=== PATIENT | male | born 1995 | race Caucasian/White ===

== ENCOUNTER 2017-04-12 17:57 | Inpatient (IN) | payer BC, OTHER ==
[~2017-04-12] VITALS: Ht 152.4 cm; Wt 56.7 kg
[~2017-04-12 17:57] MED LIST: ALPRAZOLAM0.5 MG PO; KLONOPIN1 MG ORAL; ZOLOFT100 MG ORAL; ZOLOFT50 MG ORAL
--- NOTE | 2017-04-12 18:03 | Emergency Room Report ---
History of Present Illness General Source: Patient, EMS Present Illness HPI The patient is a 21-year-old male brought in by EMS after reported overdose on medications. Patient reportedly ingested approximately 10 pills of unknown type. Patient was noted to have multiple different meds medications. Patient was on tramadol for chronic back pain reportedly. Patient also is taking ADHD medications. Reported ingestion approximately one to 2 hours prior to arrival. Allergies: Coded Allergies: No Known Allergies (Unverified , 04/11/16) Patient History Past Medical History: see triage record Reviewed Nursing Documentation: PMH: Agreed, PSxH: Agreed Nursing Documentation-PMH Hx Hypertension: Yes Review of Systems All Other Systems: negative except mentioned in HPI Physical Exam Sp02 EP Interpretation: reviewed, normal General Appearance: alert/responsive, no apparent distress, GCS 15, non-toxic Head: atraumatic Eyes: PERRL, lids + conjunctiva normal ENT: hearing intact, no angioedema Neck: supple/symm/no masses, no meningismus Respiratory: effort normal, no wheezing, chest symmetrical Cardiovascular: regular rate, rhythm, no edema Cardiovascular #2: 2+ carotid (R), 2+ carotid (L), 2+ dorsalis pedis (R), 2+ dorsalis pedis (L) Gastrointestinal: non-tender, no mass, non-distended, no rebound/guarding, normal bowel sounds Musculoskeletal: gait & station normal, strength & tone normal, normal ROM, non -tender Neurologic: oriented x3, sensory intact, normal speech Psychiatric: normal inspection, judgment & insight normal Skin: no rash, well hydrated Lymphatic: normal inspection Medical Decision Making Diagnostic Impression: Primary Impression: Medication overdose ER Course Patient presented for overdose. Differential diagnoses included wasn't limited to suicide attempt versus accidental ingestion, Tylenol overdose, among others.The patient was discussed with poison control. They recommended 6 hours of observation. Charcoal was not recommended.The patient was noted to have some improvement in his mental status over time.Patient was noted to have some bradycardia on cardiac monitoring. A repeat EKG showed the sinus bradycardia with a rate of 42. This is not consistent with medications the patient was noted of overdosed on. The patient was given IV magnesium for prolonged QT interval. Labs Test 04/12/17 18:00 04/12/17 18:05 White Blood Count 12.2 K/UL (4.8-10.8) Red Blood Count 5.10 M/UL (4.70-6.10) Hemoglobin 15.7 G/DL (14.2-18.0) Hematocrit 46.5 % (42.0-52.0) Mean Corpuscular Volume 91 FL (80-99) Mean Corpuscular Hemoglobin 30.7 PG (27.0-31.0) Mean Corpuscular Hemoglobin Concent 33.7 G/DL (32.0-36.0) Red Cell Distribution Width 12.4 % (11.6-14.8) Platelet Count 276 K/UL (150-450) Mean Platelet Volume 6.7 FL (6.5-10.1) Neutrophils (%) (Auto) 77.1 % (45.0-75.0) Lymphocytes (%) (Auto) 13.1 % (20.0-45.0) Monocytes (%) (Auto) 7.6 % (1.0-10.0) Eosinophils (%) (Auto) 1.7 % (0.0-3.0) Basophils (%) (Auto) 0.5 % (0.0-2.0) Sodium Level 141 mEQ/L (135-145) Potassium Level 4.0 mEQ/L (3.4-4.9) Chloride Level 98 mEQ/L (98-107) Carbon Dioxide Level 30 mEQ/L (20-30) Anion Gap 13 (5-15) Blood Urea Nitrogen 12 mg/dL (7-23) Creatinine 1.0 mg/dL (0.7-1.2) Estimat Glomerular Filtration Rate > 60 mL/min (>60) Glucose Level 114 mg/dL (74-106) Calcium Level 9.8 mg/dL (8.6-10.2) Total Bilirubin 0.3 mg/dL (0.0-1.2) Aspartate Amino Transf (AST/SGOT) 27 U/L (5-40) Alanine Aminotransferase (ALT/SGPT) 17 U/L (3-41) Alkaline Phosphatase 66 U/L (40-129) Total Protein 6.8 g/dL (6.6-8.7) Albumin 4.6 g/dL (3.5-5.2) Globulin 2.2 g/dL Albumin/Globulin Ratio 2.0 (1.0-2.7) Salicylates Level < 1 mg/dL (10-30) Acetaminophen Level < 10 ug/mL (10-30) Serum Alcohol < 10 mg/dL Urine Opiates Screen Negative (NEGATIVE) Urine Barbiturates Screen Negative (NEGATIVE) Phencyclidine (PCP) Screen Negative (NEGATIVE) Urine Amphetamines Screen Negative (NEGATIVE) Urine Benzodiazepines Screen Positive (NEGATIVE) Urine Cocaine Screen Negative (NEGATIVE) Urine Marijuana (THC) Screen Negative (NEGATIVE) EKG Diagnostic Results Rate: normal - 70 Rhythm: NSR ST Segments: other - qtc 453 Status: unchanged Disposition: ADMITTED INPATIENT Condition: Esdras Shukla April 12, 2017 18:03
[2017-04-12 18:30] VITALS: BP 138/88
[2017-04-12 18:48] LABS: BASOPHILS % (AUTO) 0.5 % (0.0-2.0); EOSINOPHILS % (AUTO) 1.7 % (0.0-3.0); LYMPHOCYTES % (AUTO) 13.1 % (20.0-45.0); MEAN CORPUSCULAR HEMOGLOBIN 30.7 PG (27.0-31.0); MEAN CORPUSCULAR HGB CONC 33.7 G/DL (32.0-36.0); MEAN CORPUSCULAR VOLUME 91 FL (80-99); MEAN PLATELET VOLUME 6.7 FL (6.5-10.1); MONOCYTES % (AUTO) 7.6 % (1.0-10.0); NEUTROPHILS % (AUTO) 77.1 % (45.0-75.0); PLATELET COUNT 276 K/UL (150-450); RED CELL DISTRIBUTION WIDTH 12.4 % (11.6-14.8); WHITE BLOOD COUNT 12.2 K/UL (4.8-10.8)
[2017-04-12 19:07] LABS: ACETAMINOPHEN < 10 ug/mL (10-30); ALANINE AMINOTRANSFERASE 17 U/L (3-41); ALCOHOL < 10 mg/dL; ANION GAP 13 (5-15); ASPARTATE AMINO TRANSFERASE 27 U/L (5-40); CALCIUM 9.8 mg/dL (8.6-10.2); CARBON DIOXIDE 30 mEQ/L (20-30); CHLORIDE 98 mEQ/L (98-107); GLOMERULAR FILTRATION RATE > 60 mL/min (>60); HEMOLYSIS 5; SODIUM 141 mEQ/L (135-145); TOTAL PROTEIN 6.8 g/dL (6.6-8.7)
[2017-04-12 20:52] VITALS: BP 143/89
[2017-04-13] MEDS ORDERED: Haloperidol 5mg/ml Inj IVPB PRN
[2017-04-13] MEDS ORDERED: UNOBMED (00:57)
[2017-04-13 01:00] VITALS: BP 126/79
[2017-04-13 01:36] VITALS: BP 118/77
[2017-04-13] MEDS ORDERED: STRATTERA80 MG PO (01:51)
[2017-04-13] MEDS ORDERED: TEMAZEPAM30 MG (01:53)
[2017-04-13] MEDS ORDERED: ALPRAZOLAM XR2 MG (01:53)
[2017-04-13] MEDS ORDERED: MIRTAZAPINE15 M3 (01:53)
[2017-04-13] MEDS ORDERED: VENLAFAXINE HC150 MG (01:53)
[2017-04-13 03:25] VITALS: BP 129/79
[2017-04-13] MEDS ORDERED: Haloperidol 5mg/ml Inj IM PRN ×3 (08:00→18:00)
[2017-04-13] MEDS ORDERED: Thiamine 100mg in D5W 55ml IVPB SCH (08:00)
[2017-04-13 08:19] LABS: BASOPHILS % (AUTO) 0.5 % (0.0-2.0); EOSINOPHILS % (AUTO) 2.5 % (0.0-3.0); LYMPHOCYTES % (AUTO) 13.6 % (20.0-45.0); MEAN CORPUSCULAR HEMOGLOBIN 28.8 PG (27.0-31.0); MEAN CORPUSCULAR HGB CONC 32.1 G/DL (32.0-36.0); MEAN CORPUSCULAR VOLUME 90 FL (80-99); MONOCYTES % (AUTO) 7.6 % (1.0-10.0); NEUTROPHILS % (AUTO) 75.9 % (45.0-75.0); PLATELET COUNT 277 K/UL (150-450); RED BLOOD COUNT 5.54 M/UL (4.70-6.10); RED CELL DISTRIBUTION WIDTH 12.2 % (11.6-14.8); WHITE BLOOD COUNT 10.4 K/UL (4.8-10.8)
[2017-04-13 08:35] LABS: ALANINE AMINOTRANSFERASE 15 U/L (3-41); ANION GAP 11 (5-15); ASPARTATE AMINO TRANSFERASE 25 U/L (5-40); CALCIUM 9.3 mg/dL (8.6-10.2); CARBON DIOXIDE 30 mEQ/L (20-30); CHLORIDE 102 mEQ/L (98-107); CREATININE 0.9 mg/dL (0.7-1.2); GLOMERULAR FILTRATION RATE > 60 mL/min (>60); HEMOLYSIS 12; POTASSIUM 3.9 mEQ/L (3.4-4.9); SODIUM 143 mEQ/L (135-145); TOTAL PROTEIN 6.3 g/dL (6.6-8.7)
[2017-04-13] MEDS ORDERED: Folic Acid 1 MG, Magnesium Sulfate 2,000 MG, Multivitamin - 12 Injection 10 ML in NS w/... IV SCH (09:00)
[2017-04-13] MEDS ORDERED: Heparin 5000 units/ml inj SUBQ SCH (09:00)
--- NOTE | 2017-04-13 11:46 | History and Physical ---
History of Present Illness General Date patient seen: April 13, 2017 Reason for Hospitalization: Altered Mental Status Present Illness HPI 21-year-old male with hx of ETOH abuse brought in by EMS after reported overdose on medications. Patient reportedly ingested approximately 10 pills of unknown type. Patient was noted to have multiple different medications. Patient was on tramadol for chronic back pain reportedly. Patient also is taking ADHD medications. Reported ingestion approximately one to 2 hours prior to arrival. He was evaluated in ER and admitted to telemetry for further evaluation. Allergies: Coded Allergies: No Known Allergies (Unverified , 04/11/16) Medication History Scheduled Alprazolam* (Xanax*), 0.5 MG PO QID Atomoxetine Hcl (Strattera), 40 MG PO DAILY, (Reported) Sertraline Hcl* (Zoloft*), 50 MG ORAL DAILY Sertraline Hcl* (Zoloft*), 100 MG ORAL DAILY Scheduled PRN Clonazepam* (Klonopin*), 1 MG ORAL Q6H PRN for tid Miscellaneous Medications Alprazolam (Alprazolam Xr), (Reported) Mirtazapine* (Mirtazapine*), (Reported) Temazepam* (Temazepam*), (Reported) Unable to Obtain Medications (Unable To Obtain Meds), (Reported) Venlafaxine Hcl* (Venlafaxine Hcl Er*), (Reported) Patient History Healthcare decision maker Resuscitation status Full Code Advanced Directive on File Review of Systems All Other Systems: negative except mentioned in HPI Physical Exam General Appearance: WD/WN Lines, tubes and drains: peripheral HEENT: normocephalic Neck: non-tender, normal alignment Respiratory/Chest: chest wall non-tender, lungs clear Cardiovascular/Chest: normal peripheral pulses, normal rate Abdomen: normal bowel sounds, non tender Extremities: normal range of motion Skin Exam: normal pigmentation Last 24 Hour Vital Signs Date Time Temp Pulse Resp B/P Pulse Ox O2 Delivery O2 Flow Rate FiO2 04/13/17 04:00 53 04/13/17 03:25 96.9 51 18 129/79 99 Room Air 04/13/17 01:36 96.9 49 20 118/77 99 Room Air 04/13/17 01:00 98.1 53 15 126/79 98 Room Air 04/13/17 01:00 98.1 53 15 126/79 98 Room Air 04/12/17 20:52 98.1 50 12 143/89 100 Room Air 04/12/17 18:30 58 16 138/88 99 Room Air 04/12/17 17:57 98.1 62 16 136/97 97 Room Air Intake and Output 04/12/17 04/13/17 19:00 07:00 Intake Total 0 ml Output Total 1200 ml 400 ml Balance -1200 ml -400 ml Intake Oral 0 ml Output Urine Total 1200 ml 400 ml Laboratory Tests Test 04/12/17 18:00 04/12/17 18:05 04/13/17 07:25 White Blood Count 12.2 K/UL (4.8-10.8) H 10.4 K/UL (4.8-10.8) Red Blood Count 5.10 M/UL (4.70-6.10) 5.54 M/UL (4.70-6.10) Hemoglobin 15.7 G/DL (14.2-18.0) 15.9 G/DL (14.2-18.0) Hematocrit 46.5 % (42.0-52.0) 49.7 % (42.0-52.0) Mean Corpuscular Volume 91 FL (80-99) 90 FL (80-99) Mean Corpuscular Hemoglobin 30.7 PG (27.0-31.0) 28.8 PG (27.0-31.0) Mean Corpuscular Hemoglobin Concent 33.7 G/DL (32.0-36.0) 32.1 G/DL (32.0-36.0) Red Cell Distribution Width 12.4 % (11.6-14.8) 12.2 % (11.6-14.8) Platelet Count 276 K/UL (150-450) 277 K/UL (150-450) Mean Platelet Volume 6.7 FL (6.5-10.1) 7.0 FL (6.5-10.1) Neutrophils (%) (Auto) 77.1 % (45.0-75.0) H 75.9 % (45.0-75.0) H Lymphocytes (%) (Auto) 13.1 % (20.0-45.0) L 13.6 % (20.0-45.0) L Monocytes (%) (Auto) 7.6 % (1.0-10.0) 7.6 % (1.0-10.0) Eosinophils (%) (Auto) 1.7 % (0.0-3.0) 2.5 % (0.0-3.0) Basophils (%) (Auto) 0.5 % (0.0-2.0) 0.5 % (0.0-2.0) Sodium Level 141 mEQ/L (135-145) 143 mEQ/L (135-145) Potassium Level 4.0 mEQ/L (3.4-4.9) 3.9 mEQ/L (3.4-4.9) Chloride Level 98 mEQ/L (98-107) 102 mEQ/L (98-107) Carbon Dioxide Level 30 mEQ/L (20-30) 30 mEQ/L (20-30) Anion Gap 13 (5-15) 11 (5-15) Blood Urea Nitrogen 12 mg/dL (7-23) 11 mg/dL (7-23) Creatinine 1.0 mg/dL (0.7-1.2) 0.9 mg/dL (0.7-1.2) Estimat Glomerular Filtration Rate > 60 mL/min (>60) > 60 mL/min (>60) Glucose Level 114 mg/dL (74-106) H 120 mg/dL (74-106) H Calcium Level 9.8 mg/dL (8.6-10.2) 9.3 mg/dL (8.6-10.2) Total Bilirubin 0.3 mg/dL (0.0-1.2) 0.5 mg/dL (0.0-1.2) Aspartate Amino Transf (AST/SGOT) 27 U/L (5-40) 25 U/L (5-40) Alanine Aminotransferase (ALT/SGPT) 17 U/L (3-41) 15 U/L (3-41) Alkaline Phosphatase 66 U/L (40-129) 69 U/L (40-129) Total Protein 6.8 g/dL (6.6-8.7) 6.3 g/dL (6.6-8.7) L Albumin 4.6 g/dL (3.5-5.2) 4.2 g/dL (3.5-5.2) Globulin 2.2 g/dL 2.1 g/dL Albumin/Globulin Ratio 2.0 (1.0-2.7) 2.0 (1.0-2.7) Salicylates Level < 1 mg/dL (10-30) L Acetaminophen Level < 10 ug/mL (10-30) L Serum Alcohol < 10 mg/dL Urine Opiates Screen Negative (NEGATIVE) Urine Barbiturates Screen Negative (NEGATIVE) Phencyclidine (PCP) Screen Negative (NEGATIVE) Urine Amphetamines Screen Negative (NEGATIVE) Urine Benzodiazepines Screen Positive (NEGATIVE) H Urine Cocaine Screen Negative (NEGATIVE) Urine Marijuana (THC) Screen Negative (NEGATIVE) Height (Feet): 5 Height (Inches): 0.00 Weight (Pounds): 125 Medications Current Medications Medications (Trade) Dose Ordered Sig/Chet Route PRN Reason Start Time Stop Time Status Last Admin Dose Admin Acetaminophen (Tylenol) 650 mg Q4H PRN ORAL fever 04/13/17 00:00 05/13/17 00:00 Al Hydroxide/Mg Hydroxide (Mylanta II) 30 ml Q6H PRN ORAL dyspepsia 04/13/17 00:00 05/13/17 00:00 Chlordiazepoxide 25 mg 25 mg Q6H PRN ORAL Agitation 04/13/17 00:00 04/20/17 00:00 04/13/17 09:10 Dextrose STAT PRN IV Hypoglycemia 04/13/17 00:00 05/13/17 00:00 Folic Acid/ Magnesium Sulfate/ Multivitamins/ Sodium Chloride (Folvite/ Magnesium Sulfate/ M.v.i.-12/NS w/ KCl 20mEq) 1,014.2 ml @ 124.876 mls/hr Q24H IV 04/13/17 09:00 05/13/17 08:59 04/13/17 09:56 Haloperidol Lactate (Haldol) 5 mg Q1H PRN IM Agitation 04/13/17 08:00 05/13/17 07:59 04/13/17 11:00 Heparin Sodium (Porcine) (Heparin 5000 units/ml) 5,000 units EVERY 12 HOURS SUBQ 04/13/17 09:00 05/13/17 08:59 04/13/17 09:11 Lorazepam (Ativan 2mg/ml 1ml) 2 mg Q1H PRN IV seizures 04/13/17 00:00 04/20/17 00:00 Morphine Sulfate (Morphine Sulfate) 1 mg Q4H PRN IVP For Pain 04/13/17 00:00 04/20/17 00:00 04/13/17 06:46 Ondansetron HCl (Zofran) 4 mg Q6H PRN IVP Nausea & Vomiting 04/13/17 00:00 05/13/17 00:00 Polyethylene Glycol (Miralax) 17 gm HSPRN PRN ORAL Constipation 04/13/17 00:00 05/13/17 00:00 Thiamine HCl/ Dextrose (Vitamin B1/D5W) 56 ml @ 112 mls/hr Q24H IVPB 04/13/17 08:00 05/13/17 07:59 04/13/17 09:10 Zolpidem Tartrate (Ambien) 5 mg HSPRN PRN ORAL Insomnia 04/13/17 00:00 05/13/17 00:00 Assessment/Plan Problem List: (1) Acute encephalopathy ICD Codes: G93.40 - Encephalopathy, unspecified SNOMED: 6372505 (2) Benzodiazepine withdrawal ICD Codes: F13.239 - Sedative, hypnotic or anxiolytic dependence with withdrawal, unspecified SNOMED: 345691268 (3) Medication overdose ICD Codes: T50.901A - Poisoning by unspecified drugs, medicaments and biological substances, accidental (unintentional), initial encounter SNOMED: 91175534 Assessment/Plan Banana bag prn antipsychotic psych evaluation RONDA LAWRENCE April 13, 2017 11:46
[2017-04-13] MEDS ORDERED: Mylanta II UD 30ml ORAL PRN ×2 (18:00)
[2017-04-13] MEDS ORDERED: Morphine Sulfate 2mg/ml Inj IVP PRN ×2 (18:00)
[2017-04-13] MEDS ORDERED: chlordiazePOXIDE 25mg Cap ORAL PRN ×2 (18:00)
[2017-04-13] MEDS ORDERED: LORazepam Inj 2mg/ml 1ml IV PRN ×2 (18:00)
--- NOTE | 2017-04-13 18:34 | Cardiology Report ---
APPROVED REPORT EKG Measurement Heart [id number] Marked sinus bradycardia Abnormal ECG
--- NOTE | 2017-04-13 18:46 | Consultation ---
DATE OF CONSULTATION: 04/12/2017 CONSULTING PHYSICIAN: Rian Ge M.D. HISTORY OF PRESENT ILLNESS: This is a 21-year-old male with a history of ADHD and depression, status post overdose on 10 pills of unknown type. The patient was brought into the emergency room via ambulance and paramedics. During the evaluation, the patient stated that he has overdosed on due to severe pain. He is also suffering from depression and endorsed depressed mood, anhedonia, worthlessness, hopelessness, and passive suicidal ideation. He is not endorsing any psychotic or manic symptoms. It appears that he has poor support system. He has not been following up with a psychiatrist. PAST PSYCHIATRIC HISTORY: He has a history of depression as well as ADHD. No psychiatric hospitalizations. No suicide attempt in the past. He is not following his psychiatrist on a regular basis. PAST MEDICAL HISTORY: He has a history of hypertension. ALLERGIES: No known drug allergies. SUBSTANCE USE HISTORY: No known history of illicit drug use or alcohol. He is denying any IV drug use. MENTAL STATUS EXAMINATION: The patient is alert and oriented x3. His mood is depressed. Affect is constricted. Congruent mood. Thought process is linear. Thought content, denies any suicidal ideation currently. No delusions. No AVH. Insight and judgment are fair. ASSESSMENT: AXIS I: 1. Major depressive disorder. 2. Attention deficit hyperactivity disorder. AXIS II: Deferred. AXIS III: He is status post overdose on unknown type of pill. AXIS IV: Moderate. AXIS V: Global assessment of functioning is 20. PLAN: 1. We will stop all the psychotropic medications now and we will consider low-dose of SSRIs. 2. He is currently on Haldol p.r.n. for agitation and anxiety. 3. He will also benefit from 5150 evaluation. 4. He was also started on Librium for possible alcohol withdrawal. Rian Ge M.D. DR: HANK JOB#: [id number] CC:
[2017-04-13 20:00] VITALS: BP 125/77
[2017-04-13] MEDS ORDERED: Miralax 17gm pkt ORAL PRN ×2 (21:00)
[2017-04-13] MEDS ORDERED: Zolpidem 5mg tab ORAL PRN ×2 (21:00)
[2017-04-13] MEDS: Heparin 5000 units/ml inj SUBQ SCH (21:35)
[2017-04-14] VITALS: BP 119/69
[2017-04-14 04:00] VITALS: BP 127/64
[2017-04-14 08:00] VITALS: BP 113/59
[2017-04-14] MEDS: Heparin 5000 units/ml inj SUBQ SCH ×2 (08:50→21:00)
[2017-04-14] MEDS ORDERED: Thiamine HCl 100 MG in D5W 55 ML IVPB SCH (09:00)
[2017-04-14] MEDS ORDERED: Folic Acid 1 MG, Magnesium Sulfate 2,000 MG, Multivitamin - 12 Injection 10 ML in NS w/... IV SCH (09:00)
[2017-04-14] MEDS ORDERED: Tubing IV Secondary IV ONE (10:53)
[2017-04-14 12:00] VITALS: BP 125/69
[2017-04-14 16:00] VITALS: BP 127/76
--- NOTE | 2017-04-14 18:38 | Pulmonology Progress Note ---
Assessment/Plan Problems: (1) Acute encephalopathy (2) Benzodiazepine withdrawal (3) Medication overdose Assessment/Plan medically clear to be transferred to a psych facility d/w psychiatrist Subjective ROS Limited/Unobtainable: No Allergies: Coded Allergies: No Known Allergies (Unverified , 04/11/16) Objective Last 24 Hour Vital Signs Date Time Temp Pulse Resp B/P Pulse Ox O2 Delivery O2 Flow Rate FiO2 04/14/17 16:00 97.3 100 20 127/76 98 Room Air 04/14/17 12:00 97.3 100 20 125/69 98 Room Air 04/14/17 08:00 97.3 87 20 113/59 95 Room Air 04/14/17 04:00 98.2 70 18 127/64 96 Room Air 04/14/17 00:00 98.0 84 18 119/69 100 Room Air 04/13/17 20:00 97.0 57 20 125/77 100 Room Air Intake and Output 04/13/17 04/14/17 19:00 07:00 Intake Total 930.131 ml 140.069 ml Output Total 1300 ml Balance 930.131 ml -1159.931 ml IV Total 930.131 ml 140.069 ml Output Urine Total 1300 ml Objective General Appearance: WD/WN HEENT: normocephalic, atraumatic Respiratory/Chest: chest wall non-tender, clear Cardiovascular: normal peripheral pulses, normal rate Abdomen: normal bowel sounds, no organomegaly Genitourinary: normal external genitalia Neurologic/Psychiatric: shoe planner II-XII grossly normal Current Medications Medications (Trade) Dose Ordered Sig/Chet Route PRN Reason Start Time Stop Time Status Last Admin Dose Admin Acetaminophen (Tylenol) 650 mg Q4H PRN ORAL T>100.5 04/13/17 18:00 05/13/17 17:59 Al Hydroxide/Mg Hydroxide (Mylanta II) 30 ml Q6H PRN ORAL dyspepsia 04/13/17 18:00 05/13/17 17:59 Chlordiazepoxide (Librium) 25 mg Q6H PRN ORAL Agitation 04/13/17 18:00 04/20/17 17:59 04/14/17 08:45 Dextrose (Dextrose 50%) STAT PRN IV Hypoglycemia 04/13/17 18:00 05/13/17 17:59 Fluoxetine HCl (PROzac) 20 mg DAILY ORAL 04/14/17 14:00 05/14/17 13:59 04/14/17 14:00 Folic Acid 1 mg/ Magnesium Sulfate 2000 mg/ Multivitamins 10 ml/Sodium Chloride 1,014.2 ml @ 124.876 mls/hr Q24H IV 04/14/17 09:00 05/14/17 08:59 04/14/17 08:45 Haloperidol Lactate (Haldol) 5 mg Q1H PRN IM Agitation 04/13/17 18:00 05/13/17 17:59 Heparin Sodium (Porcine) (Heparin 5000 units/ml) 5,000 units EVERY 12 HOURS SUBQ 04/13/17 21:00 05/13/17 20:59 04/14/17 08:50 Lorazepam (Ativan 2mg/ml 1ml) 2 mg Q1H PRN IV seizures 04/13/17 18:00 04/20/17 17:59 Morphine Sulfate (Morphine Sulfate) 1 mg Q4H PRN IVP PAIN 4-10 04/13/17 18:00 04/20/17 17:59 Ondansetron HCl (Zofran) 4 mg Q6H PRN IVP Nausea & Vomiting 04/13/17 18:00 05/13/17 17:59 Polyethylene Glycol (Miralax) 17 gm HSPRN PRN ORAL Constipation 04/13/17 21:00 05/13/17 20:59 Risperidone (RisperDAL) 2 mg BEDTIME ORAL 04/13/17 21:00 05/13/17 20:59 04/13/17 21:36 Thiamine HCl/ Dextrose (Vitamin B1/D5W) 56 ml @ 112 mls/hr Q24H IVPB 04/14/17 09:00 05/14/17 08:59 04/14/17 09:03 Zolpidem Tartrate (Ambien) 5 mg HSPRN PRN ORAL Insomnia 04/13/17 21:00 05/13/17 20:59 RONDA LAWRENCE April 14, 2017 18:37
--- NOTE | 2017-04-14 20:02 | Progress Note ---
SUBJECTIVE: The patient is more lucid today. He is still denying any suicidal or homicidal ideation. It appears that the patient is abusing medication, unclear whether it was an overdose due to suicide attempt or not. The patient has had this episode before. I really believe the patient would benefit from inpatient psychiatric care and hospitalization and follow up with substance use disorder program. He may end up losing his life by taking either an accidental overdose or intentional. MENTAL STATUS EXAMINATION: Alert and oriented x3. Mood is irritable. Affect is constricted. Congruent with mood. Thought process is concrete. Thought content, denies suicidal or homicidal ideations. Cognition is currently intact. Insight and judgment is poor. ASSESSMENT: 1. Attention deficit hyperactivity disorder by history. 2. Mood disorder, not otherwise specified. PLAN: 1. The patient would benefit from a 5150 evaluation. 2. The patient would benefit from psychiatric hospitalization as this happened more than one time. 3. Attempted to call mother . Rian Ge M.D. DR: Angélica JOB#: [id number] CC:
== END 2017-04-14 21:50 | DRG 917 ==
LOC: EDBD 17:57 → EMR 18:30 → 2E 23:14 → 4E 04-13 17:18
DX: T50.992A Poisoning by other drugs, medicaments and biological substances, intentional self-harm, initial encounter (principal); G92 Toxic encephalopathy; F13.239 Sedative, hypnotic or anxiolytic dependence with withdrawal, unspecified; F90.9 Attention-deficit hyperactivity disorder, unspecified type; I10 Essential (primary) hypertension; F32.9 Major depressive disorder, single episode, unspecified; Y92.019 Unspecified place in single-family (private) house as the place of occurrence of the external cause
CPT/HCPCS: 36415; 80053; 80300; 80329; 85025; 93005

== ENCOUNTER 2017-05-13 21:03 | Emergency (ER) | payer MEDICAID, OTHER ==
[~2017-05-13] VITALS: Ht 180.3 cm; Wt 59.0 kg
[~2017-05-13 21:03] MED LIST changes: +ALPRAZOLAM XR2 MG; +MIRTAZAPINE15 M3; +STRATTERA80 MG PO; +TEMAZEPAM30 MG; +UNOBMED; +VENLAFAXINE HC150 MG
[2017-05-14 01:01] LABS: BASOPHILS % (AUTO) 1.6 % (0.0-2.0); EOSINOPHILS % (AUTO) 1.7 % (0.0-3.0); LYMPHOCYTES % (AUTO) 26.5 % (20.0-45.0); MEAN CORPUSCULAR HGB CONC 33.3 G/DL (32.0-36.0); MEAN CORPUSCULAR VOLUME 90 FL (80-99); MEAN PLATELET VOLUME 6.9 FL (6.5-10.1); MONOCYTES % (AUTO) 8.2 % (1.0-10.0); PLATELET COUNT 325 K/UL (150-450); RED BLOOD COUNT 5.47 M/UL (4.70-6.10); RED CELL DISTRIBUTION WIDTH 11.6 % (11.6-14.8); WHITE BLOOD COUNT 10.8 K/UL (4.8-10.8)
[2017-05-14 01:20] LABS: ACETAMINOPHEN < 10 ug/mL (10-30); ALANINE AMINOTRANSFERASE 9 U/L (3-41); ALCOHOL < 10 mg/dL; ANION GAP 14 (5-15); ASPARTATE AMINO TRANSFERASE 14 U/L (5-40); CALCIUM 9.8 mg/dL (8.6-10.2); CARBON DIOXIDE 31 mEQ/L (20-30); CHLORIDE 95 mEQ/L (98-107); CREATININE 0.8 mg/dL (0.7-1.2); GLOMERULAR FILTRATION RATE > 60 mL/min (>60); HEMOLYSIS 5; POTASSIUM 3.9 mEQ/L (3.4-4.9); SODIUM 140 mEQ/L (135-145); TOTAL PROTEIN 7.1 g/dL (6.6-8.7)
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
[2017-05-14 01:57] VITALS: BP 114/61
[2017-05-14 05:45] VITALS: BP 106/61
[2017-05-14] MEDS ORDERED: ABILIFY2 MG ORAL (05:45)
[2017-05-14] MEDS ORDERED: ADDERALL 20 MG20 MG ORAL (05:45)
[2017-05-14] MEDS ORDERED: PROZAC10 MG ORAL (05:45)
[2017-05-14 08:00] VITALS: BP 101/65
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
[2017-05-14 11:00] VITALS: BP 110/61
[2017-05-14 13:00] VITALS: BP 109/63
[2017-05-14 13:15] VITALS: BP 109/63
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
== END 2017-05-14 13:15 ==
LOC: EDBD 21:03 → EMR 21:23
DX: F91.9 Conduct disorder, unspecified (principal); Z86.59 Personal history of other mental and behavioral disorders
CPT/HCPCS: 36415; 80053; 80300; 80329; 85025

== ENCOUNTER 2017-10-06 21:11 | Emergency (ER) | payer BC, MEDICAID ==
[~2017-10-06] VITALS: Ht 177.8 cm; Wt 63.5 kg
[~2017-10-06 21:11] MED LIST changes: +ABILIFY2 MG ORAL; +ADDERALL 20 MG20 MG ORAL; +PROZAC10 MG ORAL
[2017-10-06] MEDS ORDERED: XANAX2 MG ORAL (21:24)
[2017-10-06] MEDS ORDERED: VENLAFAXINE H37.5 MG ORAL (21:24)
[2017-10-06] MEDS ORDERED: MIRTAZAPINE30 MG ORAL (21:24)
[2017-10-06] MEDS ORDERED: Tetracaine 0.5% Opth 4ml Soln RIGHT EYE ONE (22:00)
[2017-10-06] MEDS ORDERED: Fluorescein Strips RIGHT EYE ONE (22:00)
[2017-10-06] MEDS ORDERED: GENTAK3.5 GM OP (22:22)
[2017-10-06] MEDS ORDERED: ACETAMINOPHEN-1 EAC1 ORAL (22:22)
[2017-10-06 22:33] VITALS: BP_SYST 131; BP_SYST 135; BP_DIAS 78; BP_DIAS 87
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
== END 2017-10-06 22:32 | disposition home or self-care (01) ==
LOC: EMR 21:55
DX: T26.31XA Burns of other specified parts of right eye and adnexa, initial encounter (principal); X10.2XXA Contact with fats and cooking oils, initial encounter; Y93.G3 Activity, cooking and baking; Y92.009 Unspecified place in unspecified non-institutional (private) residence as the place of occurrence of the external cause; H10.9 Unspecified conjunctivitis; F41.9 Anxiety disorder, unspecified; F32.9 Major depressive disorder, single episode, unspecified
CPT/HCPCS: 65205; 69210; 99283

== ENCOUNTER 2018-01-04 19:05 | Emergency (ER) | payer BC, MEDICAID ==
[~2018-01-04] VITALS: Ht 180.3 cm; Wt 72.6 kg
[~2018-01-04 19:05] MED LIST changes: +ACETAMINOPHEN-1 EAC1 ORAL; +GENTAK3.5 GM OP; +MIRTAZAPINE30 MG ORAL; +VENLAFAXINE H37.5 MG ORAL; +XANAX2 MG ORAL
[2018-01-04 19:30] VITALS: BP 118/87
[2018-01-04] MEDS ORDERED: IBUPROFEN600 MG ORAL (20:06)
--- NOTE | 2018-01-04 22:38 | Emergency Room Report ---
History of Present Illness General Chief Complaint: Pain Source: Patient Present Illness HPI 22-year-old male presents ED for evaluation. Patient states he's been having chest pain which started this afternoon. Midsternal, sharp, 8/10, nonradiating. Worse with deep breaths. Denies shortness of breath. Patient appears anxious. States he does have history of anxiety. Patient does note prior history of drug use but denies any drug use at this time. Denies cough. Denies fevers or chills. No other aggravating relieving factors. Denies any other associated symptoms Allergies: Coded Allergies: No Known Allergies (Unverified , 04/11/16) Patient History Past Medical History: psych hx Past Surgical History: none Pertinent Family History: none Social History: Denies: smoking, alcohol use, drug use Immunizations: UTD Reviewed Nursing Documentation: PMH: Agreed, PSxH: Agreed Nursing Documentation-PMH Hx Cardiac Problems: No Hx Hypertension: No Hx Pacemaker: No Hx Asthma: No Hx COPD: No Hx Diabetes: No Hx Cancer: No Hx Gastrointestinal Problems: No Hx Dialysis: No History Of Psychiatric Problem: Yes - Anxiety; Depression Hx Neurological Problems: No Hx Cerebrovascular Accident: No Hx Seizures: No Review of Systems All Other Systems: negative except mentioned in HPI Physical Exam Vital Signs Date Time Temp Pulse Resp B/P (MAP) Pulse Ox O2 Delivery O2 Flow Rate FiO2 01/04/18 19:08 97.7 87 18 118/87 98 97.7 Sp02 EP Interpretation: reviewed, normal General Appearance: no apparent distress, alert, GCS 15, non-toxic Head: normocephalic, atraumatic Eyes: bilateral eye normal inspection, bilateral eye PERRL ENT: hearing grossly normal, normal pharynx, no angioedema, normal voice Neck: full range of motion, supple/symm/no masses Respiratory: lungs clear, normal breath sounds, speaking full sentences, other - reproducible chest wall pain Cardiovascular #1: regular rate, rhythm, no edema Cardiovascular #2: 2+ carotid (R), 2+ carotid (L), 2+ radial (R), 2+ radial (L) , 2+ dorsalis pedis (R), 2+ dorsalis pedis (L) Gastrointestinal: normal bowel sounds, non tender, soft, non-distended, no guarding, no rebound Rectal: deferred Genitourinary: normal inspection, no CVA tenderness Musculoskeletal: back normal, gait/station normal, normal range of motion, non- tender Neurologic: alert, oriented x3, responsive, motor strength/tone normal, sensory intact, speech normal Psychiatric: judgement/insight normal, memory normal, mood/affect normal, no suicidal/homicidal ideation Reflexes: 3+ bicep (R), 3+ bicep (L), 3+ tricep (R), 3+ tricep (L), 3+ knee (R) , 3+ knee (L) Skin: normal color, no rash, warm/dry, well hydrated Lymphatic: no adenopathy Medical Decision Making Diagnostic Impression: Primary Impression: Chest wall pain ER Course Hospital Course 22-year-old male presents ED complaining of reproducible chest wall pain Differential diagnoses include: Rib fracture, PA/unstable angina, contusion, muscle strain Clinical course Patient placed on stretcher. After initial history and physical I ordered EKG EKG shows normal sinus rhythm no acute ischemic changes interpreted by me Based on exam pain is reproducible. Lungs clear. Likely muscular pain. No evidence of trauma. Did not leave imaging is warranted at this time. On reviewed EMR patient has been here in the past for drug related complaints. Psychiatric complaints. Patient does appear anxious. Mother at bedside. Reassurance given. Patient can be safely discharged home Diagnosis - chest wall pain Stable and discharged to home. Followup with PMD. Return to ED if symptoms recur or worsen EKG Diagnostic Results Rate: normal Rhythm: NSR ST Segments: no acute changes ASA given to the pt in ED: No Rhythm Strip Diag. Results EP Interpretation: yes Rhythm: NSR, no PVC's, no ectopy Last Vital Signs Date Time Temp Pulse Resp B/P (MAP) Pulse Ox O2 Delivery O2 Flow Rate FiO2 01/04/18 19:08 97.7 87 18 118/87 98 97.7 Status: improved Disposition: HOME, SELF-CARE Condition: Stable Scripts Ibuprofen* (MOTRIN*) 600 Mg Tablet 600 MG ORAL Q8H Y for For Pain, #30 TAB 0 Refills Prov: BOZENA LACY M.D. 01/04/18 Patient Instructions: Chest Wall Pain, [id number] BOZENA LACY M.D. Jan 04, 2018 22:37
[2018-01-04 23:00] VITALS: BP 118/87
--- NOTE | 2018-01-05 16:23 | Cardiology Report ---
APPROVED REPORT EKG Measurement Heart [id number] Normal sinus rhythm with sinus arrhythmia Possible Lateral infarct, age undetermined Abnormal ECG
== END 2018-01-04 20:30 | disposition home or self-care (01) ==
LOC: EMR 19:50
DX: R07.89 Other chest pain (principal)
CPT/HCPCS: 93005; 99283

== ENCOUNTER 2018-01-07 19:10 | Emergency (ER) | payer BC, MEDICAID ==
[~2018-01-07] VITALS: Ht 180.3 cm; Wt 68.0 kg
[~2018-01-07 19:10] MED LIST changes: +IBUPROFEN600 MG ORAL
[2018-01-07 20:10] VITALS: BP 131/88
[2018-01-07] MEDS ORDERED: Haloperidol 5mg/ml Inj IM ONE (20:30)
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
[2018-01-07 21:23] VITALS: BP 122/80
[2018-01-07 21:43] LABS: BASOPHILS % (AUTO) 1.3 % (0.0-2.0); EOSINOPHILS % (AUTO) 0.7 % (0.0-3.0); HEMATOCRIT 47.7 % (42.0-52.0); LYMPHOCYTES % (AUTO) 30.8 % (20.0-45.0); MEAN CORPUSCULAR VOLUME 89 FL (80-99); MONOCYTES % (AUTO) 9.7 % (1.0-10.0); NEUTROPHILS % (AUTO) 57.5 % (45.0-75.0); PLATELET COUNT 319 K/UL (150-450); RED BLOOD COUNT 5.35 M/UL (4.70-6.10); RED CELL DISTRIBUTION WIDTH 12.9 % (11.6-14.8); WHITE BLOOD COUNT 6.5 K/UL (4.8-10.8)
[2018-01-07 22:24] LABS: ALANINE AMINOTRANSFERASE 23 U/L (12-78); ALBUMIN 3.9 G/DL (3.4-5.0); ALBUMIN/GLOBULIN RATIO 1.2 (1.0-2.7); ALKALINE PHOSPHATASE 86 U/L (46-116); ANION GAP 11 mmol/L (5-15); ASPARTATE AMINO TRANSFERASE 20 U/L (15-37); BILIRUBIN,TOTAL 0.2 MG/DL (0.2-1.0); BLOOD UREA NITROGEN 3 mg/dL (7-18); CALCIUM 9.1 MG/DL (8.5-10.1); CARBON DIOXIDE 27 MMOL/L (21-32); CHLORIDE 101 MMOL/L (98-107); CREATININE 0.7 MG/DL (0.55-1.30); POTASSIUM 3.6 MMOL/L (3.5-5.1); SODIUM 139 MMOL/L (136-145)
[2018-01-07 23:00] VITALS: BP 127/86
[2018-01-08 01:20] VITALS: BP 129/87
[2018-01-08 03:55] VITALS: BP 129/80
[2018-01-08 07:33] VITALS: BP 125/76
--- NOTE | 2018-01-08 10:06 | Diagnostic Imaging Report ---
Indication: Headache Technique: Contiguous 5 mm thick transaxial imaging of the head obtained in a Siemens Sensation [address] scanner. Soft tissue and bone windows generated. Automatic Exposure Control was utilized. Total Dose length Product (DLP): 1390.[address] Dose Index Volume (CTDIvol): 70.38 mGy Comparison: none Findings: The size and configuration of the cortical sulci, basal cisterns, and ventricles are within normal limits for age. There is no mass effect, midline shift, or edema identified. There is no evidence of acute hemorrhage or abnormal intra-axial or extra-axial fluid collections. The bones and soft tissues are unremarkable. Impression: No mass effect, edema or acute bleed. The CT scanner at [facility] is accredited by the [employer] and the scans are performed using dose optimization techniques as appropriate to a performed exam including Automatic Exposure control.
[2018-01-08 10:34] VITALS: BP 139/85
[2018-01-08 11:04] VITALS: BP 139/85
== END 2018-01-08 11:10 | disposition short-term general hospital (02) ==
LOC: EDBD 19:10 → EMR 19:44
DX: F10.129 Alcohol abuse with intoxication, unspecified (principal); T42.4X1A Poisoning by benzodiazepines, accidental (unintentional), initial encounter; S00.211A Abrasion of right eyelid and periocular area, initial encounter; W19.XXXA Unspecified fall, initial encounter
CPT/HCPCS: 36415; 70450; 80053; 80307; 85025; 96372; 99284; G0480; J1630; 80329

== ENCOUNTER 2018-02-27 17:15 | Emergency (ER) | payer BC, MEDICAID, OTHER ==
[~2018-02-27] VITALS: Ht 180.3 cm; Wt 63.5 kg
[2018-02-27 17:16] VITALS: BP 140/76
[2018-02-27] MEDS ORDERED: DiphenhydrAMINE 50mg/ml Inj IM ONE (18:00)
[2018-02-27 18:40] VITALS: BP 123/76
--- NOTE | 2018-02-27 19:22 | Emergency Room Report ---
History of Present Illness General Chief Complaint: Behavioral Complaint Source: EMS Present Illness HPI 22-year-old male presents to the emergency department complaining of 2 episodes of muscle spasms in his face with acute distortion of the lower jaw. Patient state first onset of symptoms was at 5 AM he was triaged at [facility] however he was without being seen by a provider. Patient had another episode this evening which prompted him to be taken to the ER. Patient reports anxiousness and some tightness continued in the facial muscles. Patient states that he had a difficult time talking because his tongue was "straightened out "he also reports numbness and tingling sensation on the tongue. Patient states that his lips may have swollen up as well he denies itching, difficulty breathing, swelling of the throat. Patient has a history of schizophrenia and recently received IM injection of InVega. Patient states that he was administered injection one week ago. Mother who is accompanying the patient reports that patient frequently uses marijuana and drinks alcohol. Patient denies use of drugs or alcohol. Denies fevers, chills. Altered mentation. Denies lesions/rashes on the body. Denies new medications or body washes or creams. Denies wheezing, or shortness of breath. Denies recent travel, recent illness or ill contacts. denies blisters, oral lesions, or sloughing of the skin. Pt. denies CP, or palpitations. Allergies: Coded Allergies: No Known Allergies (Unverified , 04/11/16) Patient History Past Medical History: see triage record, psych hx - schizophrenia Past Surgical History: none Pertinent Family History: none Reviewed Nursing Documentation: PMH: Agreed; PSxH: Agreed Nursing Documentation-PMH Hx Cardiac Problems: No Hx Hypertension: No Hx Pacemaker: No Hx Asthma: No Hx COPD: No Hx Diabetes: No Hx Cancer: No Hx Gastrointestinal Problems: No Hx Dialysis: No History Of Psychiatric Problem: Yes - SCHIZO,DEPRESSION,ANXIETY Hx Neurological Problems: No Hx Cerebrovascular Accident: No Hx Seizures: No Review of Systems All Other Systems: negative except mentioned in HPI Physical Exam Vital Signs Date Time Temp Pulse Resp B/P (MAP) Pulse Ox O2 Delivery O2 Flow Rate FiO2 02/27/18 16:54 98.0 102 16 131/67 99 Room Air 98.1 Sp02 EP Interpretation: reviewed, normal General Appearance: alert, GCS 15, non-toxic, mild distress - very anxious and worried Head: normocephalic, atraumatic Eyes: bilateral eye normal inspection, bilateral eye PERRL ENT: hearing grossly normal, no angioedema, normal voice, other - no stridor Neck: full range of motion Respiratory: chest non-tender, lungs clear, normal breath sounds, no rhonchi, no respiratory distress, no wheezing, speaking full sentences Cardiovascular #1: regular rate, rhythm, no edema, normal capillary refill Gastrointestinal: normal bowel sounds, non tender, soft Musculoskeletal: back normal, gait/station normal, normal range of motion, non- tender Neurologic: alert, oriented x3, responsive, motor strength/tone normal, DTRs symmetric - Reflexes are normal and equal bilaterally, sensory intact, normal gait, speech normal, other - Pt. is tremulous, not ataxic, grossly normal Psychiatric: judgement/insight normal, mood/affect normal - somewhat flat however does exhibit anxiousness, anxious - Pt has worry about his symptoms of jaw tightness and facial deformity will return. Skin: normal color, no rash, warm/dry, well hydrated Medical Decision Making PA Attestation Dr. Kruger is my supervising Physician whom patient management has been discussed with. Diagnostic Impression: Primary Impression: Acute dystonic reaction due to drugs Additional Impression: Dystonic drug reaction ER Course 22-year-old male presents to the emergency department complaining of 2 episodes of muscle spasms in his face with acute distortion of the lower jaw. Patient state first onset of symptoms was at 5 AM he was triaged at [facility] however he was without being seen by a provider. Patient had another episode this evening which prompted him to be taken to the ER. Patient reports anxiousness and some tightness continued in the facial muscles. Patient states that he had a difficult time talking because his tongue was "straightened out "he also reports numbness and tingling sensation on the tongue. Patient states that his lips may have swollen up as well he denies itching, difficulty breathing, swelling of the throat. Patient has a history of schizophrenia and recently received IM injection of InVega. Patient states that he was administered injection one week ago. Mother who is accompanying the patient reports that patient frequently uses marijuana and drinks alcohol. Patient denies use of drugs or alcohol. Denies fevers, chills. Altered mentation. Denies lesions/rashes on the body. Denies new medications or body washes or creams. Denies wheezing, or shortness of breath. Denies recent travel, recent illness or ill contacts. denies blisters, oral lesions, or sloughing of the skin. Pt. denies CP, or palpitations. Ddx considered but are not limited to acute dystonic reaction, chronic dystonia , serotonin syndrome, neuroleptic hypermalignant syndrome, allergic reaction, anaphylaxis, just to name a few Vital signs: are WNL, pt. is afebrile H&PE are most consistent with Acute Dystonic Reaction -- most likely secondary to recently initiated antipsychotic medication which she received IM injection one week ago. Symptoms are intermittent and his vital signs are normal there is no evidence to suggest serotonin syndrome or NMS at this time. Patient has a patent airway and no evidence of impending airway compromise. ORDERS: none required at this time, the diagnosis is clinical ED INTERVENTIONS: -Benadryl 50 mg IM -Benztropine mesylate 2 mg IM I discussed with this patient and his mother that I believe his symptoms are due to medication that he recently was started on. Discussed with both of them that Benadryl and Cogentin are the standard of care and usually continued for 1- 2 days after onset of reaction. Discussed with both patient and mother that due to the route of administration of his medication he may need to continue these medications for a longer period of time. Discussed with them that they need to contact their psychiatrist immediately to let them know that there was a medication side effect in addition to follow-up with psychiatrist or primary care within 72 hours to assess for need of continued Benadryl and Cogentin. Patient and mother given strict ED return precautions to return to the emergency department with worsening or new symptoms. Mom is to monitor closely for emergent symptoms such as fever, altered mental status or severe agitation. To patient and mother verbalized their understanding and agreement with this treatment plan. DISCHARGE: At this time pt. is stable for d/c to home. Will provide printed patient care instructions, and any necessary prescriptions. Care plan and follow up instructions have been discussed with the patient prior to discharge. Last Vital Signs Date Time Temp Pulse Resp B/P (MAP) Pulse Ox O2 Delivery O2 Flow Rate FiO2 02/27/18 18:40 97.8 74 16 123/76 99 Room Air 97.8 Disposition: HOME, SELF-CARE Condition: Stable Scripts Diphenhydramine Hcl (BENADRYL ALLERGY) 25 Mg Tablet 25 MG PO Q6HR, #30 TAB Prov: Rosalina Mancilla 02/27/18 Benztropine Mesylate* (BENZTROPINE MESYLATE*) 2 Mg Tablet 2 MG ORAL Q8HR for 2 Days, #6 TAB Prov: Rosalina Mancilla 02/27/18 Patient Instructions: Dystonia Additional Instructions: Take medications as directed. Follow up with a Psychiatrist or Current Primary Provider within 72 hour, even if your symptoms have resolved. Please notify your psychiatrist as soon as possible about your medication side effect experience . --Please review list of primary care clinics, if you do not already have a primary care provider Return sooner to ED if new symptoms occur, or current symptoms become worse. Do not drink alcohol, drive, or operate heavy machinery while taking Benadryl as this may cause drowsiness. - Please note that this Emergency Department Report was dictated using [employer]pec[employer]stelephone mechanic technology software, occasionally this can lead to erroneous entry secondary to interpretation by the dictation equipment. Rosalina Mancilla Feb 27, 2018 19:22
[2018-02-27] MEDS ORDERED: BENZTROPINE MESY2 MG ORAL (19:25)
[2018-02-27] MEDS ORDERED: BENADRYL ALLERG25 M1 PO (19:25)
[2018-02-27 19:32] VITALS: BP 123/76
== END 2018-02-27 20:04 | disposition home or self-care (01) ==
LOC: EDBD 17:15 → EMR 18:00
DX: G24.02 Drug induced acute dystonia (principal); T50.995A Adverse effect of other drugs, medicaments and biological substances, initial encounter; Y92.009 Unspecified place in unspecified non-institutional (private) residence as the place of occurrence of the external cause; F41.9 Anxiety disorder, unspecified; F20.9 Schizophrenia, unspecified
CPT/HCPCS: 96372; 99284; J0515; J1200

== ENCOUNTER 2018-10-09 18:18 | Emergency (ER) | payer BC, MEDICAID ==
[~2018-10-09] VITALS: Ht 167.6 cm; Wt 59.0 kg
[~2018-10-09 18:18] MED LIST changes: +BENADRYL ALLERG25 M1 PO; +BENZTROPINE MESY2 MG ORAL
[2018-10-09 18:30] VITALS: BP 113/70
[2018-10-09 19:30] VITALS: BP 111/71
[2018-10-09 19:41] LABS: EOSINOPHILS % (AUTO) 2.6 % (0.0-3.0); HEMATOCRIT 44.9 % (42.0-52.0); HEMOGLOBIN 15.3 G/DL (14.2-18.0); LYMPHOCYTES % (AUTO) 29.7 % (20.0-45.0); MEAN CORPUSCULAR VOLUME 86 FL (80-99); MONOCYTES % (AUTO) 7.5 % (1.0-10.0); NEUTROPHILS % (AUTO) 59.2 % (45.0-75.0); PLATELET COUNT 325 K/UL (150-450); RED BLOOD COUNT 5.22 M/UL (4.70-6.10); RED CELL DISTRIBUTION WIDTH 11.8 % (11.6-14.8); WHITE BLOOD COUNT 7.2 K/UL (4.8-10.8)
[2018-10-09 20:08] LABS: ANION GAP 8 mmol/L (5-15); BLOOD UREA NITROGEN 9 mg/dL (7-18); CALCIUM 9.2 MG/DL (8.5-10.1); CARBON DIOXIDE 31 MMOL/L (21-32); CHLORIDE 101 MMOL/L (98-107); CREATININE 0.9 MG/DL (0.55-1.30); POTASSIUM 3.8 MMOL/L (3.5-5.1); SODIUM 140 MMOL/L (136-145)
[2018-10-09 20:12] LABS: ALANINE AMINOTRANSFERASE 15 U/L (12-78); ALBUMIN 4.1 G/DL (3.4-5.0); ALBUMIN/GLOBULIN RATIO 1.2 (1.0-2.7); ALKALINE PHOSPHATASE 79 U/L (46-116); ASPARTATE AMINO TRANSFERASE 16 U/L (15-37); BILIRUBIN,TOTAL 0.5 MG/DL (0.2-1.0)
--- NOTE | 2018-10-09 21:10 | Emergency Room Report ---
History of Present Illness General Chief Complaint: Altered Level of Consciousness Source: Patient, Family Member, EMS (Naman Ferrari MD) Present Illness HPI 23-year-old male presents ED for evaluation. Coming in for altered level of consciousness. Brought in by EMS. Mother states that patient has been lethargic with unsteady gait today with slurred speech. history of psych and takes multiple medications. History of substance abuse. Patient states that he admits to taking Klonopin with alcohol today. Denies SI or HI. Denies hearing voices. No other aggravating relieving factors. Denies any other associated symptoms (Naman Ferrari MD) Allergies: Coded Allergies: CODEINE (Unverified Allergy, Unknown, 10/09/18) Patient History Past Medical History: psych hx Past Surgical History: none Pertinent Family History: none Social History: Reports: alcohol use, drug use; Denies: smoking Immunizations: UTD Reviewed Nursing Documentation: PMH: Agreed; PSxH: Agreed (Naman Ferrari MD) Nursing Documentation-PMH Past Medical History: No History, Except For Hx Cardiac Problems: No Hx Hypertension: No Hx Pacemaker: No Hx Asthma: No Hx COPD: No Hx Diabetes: No Hx Cancer: No Hx Gastrointestinal Problems: No Hx Dialysis: No History Of Psychiatric Problem: Yes - schizophrenia, anxiety depression Hx Neurological Problems: No Hx Cerebrovascular Accident: No Hx Seizures: No (Naman Ferrari MD) Review of Systems All Other Systems: negative except mentioned in HPI (Naman Ferrari MD) Physical Exam Vital Signs Date Time Temp Pulse Resp B/P (MAP) Pulse Ox O2 Delivery O2 Flow Rate FiO2 10/09/18 18:17 98.1 96 18 113/70 98 Room Air Sp02 EP Interpretation: reviewed, normal General Appearance: no apparent distress, GCS 15, non-toxic, lethargic Head: normocephalic, atraumatic Eyes: bilateral eye normal inspection, bilateral eye PERRL ENT: hearing grossly normal, normal pharynx, no angioedema, normal voice Neck: full range of motion, supple/symm/no masses Respiratory: chest non-tender, lungs clear, normal breath sounds, speaking full sentences Cardiovascular #1: regular rate, rhythm, no edema Cardiovascular #2: 2+ carotid (R), 2+ carotid (L), 2+ radial (R), 2+ radial (L) , 2+ dorsalis pedis (R), 2+ dorsalis pedis (L) Gastrointestinal: normal bowel sounds, non tender, soft, non-distended, no guarding, no rebound Rectal: deferred Genitourinary: normal inspection, no CVA tenderness Musculoskeletal: back normal, gait/station normal, normal range of motion, non- tender Neurologic: alert, responsive, sensory intact, other - lethargic Psychiatric: memory normal, depressed affect, anxious Reflexes: 3+ bicep (R), 3+ bicep (L), 3+ tricep (R), 3+ tricep (L), 3+ knee (R) , 3+ knee (L) Skin: normal color, no rash, warm/dry, well hydrated Lymphatic: no adenopathy (Naman Ferrari MD) Medical Decision Making Diagnostic Impression: Primary Impression: Altered level of consciousness Additional Impression: Drug overdose Qualified Codes: T50.901A - Poisoning by unspecified drugs, medicaments and biological substances, accidental (unintentional), initial encounter Labs Test 10/09/18 18:42 White Blood Count 7.2 K/UL (4.8-10.8) Red Blood Count 5.22 M/UL (4.70-6.10) Hemoglobin 15.3 G/DL (14.2-18.0) Hematocrit 44.9 % (42.0-52.0) Mean Corpuscular Volume 86 FL (80-99) Mean Corpuscular Hemoglobin 29.3 PG (27.0-31.0) Mean Corpuscular Hemoglobin Concent 34.0 G/DL (32.0-36.0) Red Cell Distribution Width 11.8 % (11.6-14.8) Platelet Count 325 K/UL (150-450) Mean Platelet Volume 6.9 FL (6.5-10.1) Neutrophils (%) (Auto) 59.2 % (45.0-75.0) Lymphocytes (%) (Auto) 29.7 % (20.0-45.0) Monocytes (%) (Auto) 7.5 % (1.0-10.0) Eosinophils (%) (Auto) 2.6 % (0.0-3.0) Basophils (%) (Auto) 1.0 % (0.0-2.0) Sodium Level 140 MMOL/L (136-145) Potassium Level 3.8 MMOL/L (3.5-5.1) Chloride Level 101 MMOL/L (98-107) Carbon Dioxide Level 31 MMOL/L (21-32) Anion Gap 8 mmol/L (5-15) Blood Urea Nitrogen 9 mg/dL (7-18) Creatinine 0.9 MG/DL (0.55-1.30) Estimat Glomerular Filtration Rate > 60 mL/min (>60) Glucose Level 100 MG/DL (74-106) Calcium Level 9.2 MG/DL (8.5-10.1) Total Bilirubin 0.5 MG/DL (0.2-1.0) Aspartate Amino Transf (AST/SGOT) 16 U/L (15-37) Alanine Aminotransferase (ALT/SGPT) 15 U/L (12-78) Alkaline Phosphatase 79 U/L (46-116) Total Protein 7.5 G/DL (6.4-8.2) Albumin 4.1 G/DL (3.4-5.0) Globulin 3.4 g/dL Albumin/Globulin Ratio 1.2 (1.0-2.7) Salicylates Level 3.9 ug/mL (2.8-20) Urine Opiates Screen Negative (NEGATIVE) Acetaminophen Level < 2 MCG/ML (10-30) Urine Barbiturates Screen Positive (NEGATIVE) Phencyclidine (PCP) Screen Negative (NEGATIVE) Urine Amphetamines Screen Negative (NEGATIVE) Urine Benzodiazepines Screen Negative (NEGATIVE) Urine Cocaine Screen Negative (NEGATIVE) Urine Marijuana (THC) Screen Positive (NEGATIVE) Serum Alcohol < 3 mg/dL (Naman Ferrari MD) ER Course This patient was signed out to me. He came in altered secondary to overdose. He slept in the night without any issue. Now he is awake. Walking without any problem. Speech is clear. He said he wants to go home. I try to convince him to stay little bit longer for mom to pick him up. He refused. He is not suicidal or homicidal. He is no longer intoxicated. He is competent to make a decision. I did call his mom to let her know of the situation. She is okay with him walking home. This patient is a chronic risk of self injury due to poor impulse control, limited coping skills, and judgment intermittently impaired by intoxication. I believe that the available clinical evidence to suggest that these characteristics derived primarily from personality disorder and are likely very stable over time. Hospitalization would likely attenuate risk of self-harm only during penitentiary period, without lasting risk reduction. Serious self-harm , while possible, would likely be inadvertent, and because of impulsivity, and foreseeable. For these reasons, I do not believe hospitalization would provide meaningful reduction in risk of self-harm. (Rodriguez Joya MD) Last Vital Signs Date Time Temp Pulse Resp B/P (MAP) Pulse Ox O2 Delivery O2 Flow Rate FiO2 10/09/18 18:30 96 18 Room Air 10/09/18 18:30 98.1 113/70 100 (Naman Ferrari MD) Status: improved (Rodriguez Joya MD) Disposition: HOME, SELF-CARE Condition: Stable Referrals: [facility],REFERRING (PCP) Additional Instructions: Stop abusing drugs. Follow-up in rehabilitation within a week. Return if symptom worsen. Naman Ferrari MD Oct 09, 2018 21:10 Rodriguez Joya MD Oct 10, 2018 04:51
[2018-10-09 22:00] VITALS: BP 110/72
[2018-10-10 01:30] VITALS: BP 113/75
[2018-10-10 04:30] VITALS: BP 114/75
[2018-10-10 05:01] VITALS: BP 116/73
[2018-10-12] MEDS ORDERED: KEPPRA500 M4 ORAL (10:16)
[2018-10-12] MEDS ORDERED: PHENOBARBITAL30 MG ORAL (10:21)
[2018-10-12] MEDS ORDERED: PRAZOSIN HCL2 MG PO (12:03)
[2018-10-12] MEDS ORDERED: DESVENLAFAXINE50 MG ORAL (12:03)
[2018-10-12] MEDS ORDERED: CLONAZEPAM1 MG PO (12:05)
== END 2018-10-10 05:01 | disposition home or self-care (01) ==
LOC: EDBD 18:18 → EMR 19:07
DX: T50.901A Poisoning by unspecified drugs, medicaments and biological substances, accidental (unintentional), initial encounter (principal); R41.82 Altered mental status, unspecified; Z88.6 Allergy status to analgesic agent; F20.9 Schizophrenia, unspecified; F41.9 Anxiety disorder, unspecified; F32.9 Major depressive disorder, single episode, unspecified
CPT/HCPCS: 36415; 80053; 80307; 85025; 96360; 99284; G0480; 80329

== ENCOUNTER → 2018-10-12 | Emergency (ER) | payer BC, MEDICAID ==
[2018-10-12] VITALS (8 sets, daily range): BP systolic 102–114; BP diastolic 64–78
[~2018-10-12] VITALS: Ht 172.7 cm; Wt 59.0 kg
[~2018-10-12] MED LIST changes: +CLONAZEPAM1 MG PO; +DESVENLAFAXINE50 MG ORAL; +Haloperidol Decanoate 50mg Inj IM SCH; +KEPPRA500 M4 ORAL; +LORazepam 1mg tab ORAL ONE; +PHENOBARBITAL30 MG ORAL; +PRAZOSIN HCL2 MG PO
[2018-10-12 12:07] LABS: BASOPHILS % (AUTO) 0.6 % (0.0-2.0); EOSINOPHILS % (AUTO) 0.9 % (0.0-3.0); HEMATOCRIT 48.8 % (42.0-52.0); HEMOGLOBIN 16.2 G/DL (14.2-18.0); LYMPHOCYTES % (AUTO) 18.7 % (20.0-45.0); MEAN CORPUSCULAR VOLUME 85 FL (80-99); MONOCYTES % (AUTO) 7.4 % (1.0-10.0); NEUTROPHILS % (AUTO) 72.3 % (45.0-75.0); PLATELET COUNT 341 K/UL (150-450); RED BLOOD COUNT 5.72 M/UL (4.70-6.10); RED CELL DISTRIBUTION WIDTH 12.3 % (11.6-14.8); WHITE BLOOD COUNT 8.5 K/UL (4.8-10.8)
[2018-10-12 12:17] LABS: ANION GAP 13 mmol/L (5-15); BLOOD UREA NITROGEN 5 mg/dL (7-18); CALCIUM 9.1 MG/DL (8.5-10.1); CARBON DIOXIDE 27 MMOL/L (21-32); CHLORIDE 100 MMOL/L (98-107); CREATININE 0.8 MG/DL (0.55-1.30); POTASSIUM 3.7 MMOL/L (3.5-5.1); SODIUM 140 MMOL/L (136-145)
[2018-10-12 12:21] LABS: ALANINE AMINOTRANSFERASE 19 U/L (12-78); ALBUMIN 4.4 G/DL (3.4-5.0); ALBUMIN/GLOBULIN RATIO 1.1 (1.0-2.7); ALKALINE PHOSPHATASE 87 U/L (46-116); ASPARTATE AMINO TRANSFERASE 21 U/L (15-37); BILIRUBIN,TOTAL 0.3 MG/DL (0.2-1.0)
--- NOTE | 2018-10-12 14:00 | Emergency Room Report ---
History of Present Illness General Chief Complaint: General Complaint Source: Patient, Family Member Present Illness HPI Patient presents with complaints of ingestion of increased phenobarbital also lethargy Patient was here recently with complaints of possible suicidal/homicidal thoughts During a time patient had asked to leave Was not on a 5150 hold Patient also denied any homicidal or suicidal thoughts at that time Mom called the paramedics today at the patient appeared to be more lethargic than usual Patient has extensive history of psychiatric disorder with personality disorder as well On multiple medications Allergies: Coded Allergies: CODEINE (Unverified Allergy, Unknown, 10/09/18) Patient History Past Medical History: see triage record Pertinent Family History: none Reviewed Nursing Documentation: PMH: Agreed; PSxH: Agreed Nursing Documentation-PMH Hx Cardiac Problems: No Hx Hypertension: No Hx Pacemaker: No Hx Asthma: No Hx COPD: No Hx Diabetes: No Hx Cancer: No Hx Gastrointestinal Problems: No Hx Dialysis: No Hx Neurological Problems: No Hx Cerebrovascular Accident: No Hx Seizures: Yes Review of Systems All Other Systems: negative except mentioned in HPI Physical Exam Vital Signs Date Time Temp Pulse Resp B/P (MAP) Pulse Ox O2 Delivery O2 Flow Rate FiO2 10/12/18 10:09 98.4 84 16 132/82 100 Room Air Sp02 EP Interpretation: reviewed, normal General Appearance: no apparent distress Head: normocephalic, atraumatic - However there are areas of abrasion on the forehead Eyes: bilateral eye PERRL, bilateral eye EOMI ENT: normal pharynx Neck: full range of motion, supple Respiratory: normal breath sounds Cardiovascular #1: regular rate, rhythm Gastrointestinal: non tender, soft, no mass Musculoskeletal: normal inspection, back normal Neurologic: alert, oriented x3, responsive Psychiatric: mood/affect normal Skin: other - Abrasions Lymphatic: no adenopathy Medical Decision Making Diagnostic Impression: Primary Impression: Psychosis Additional Impression: Elevated Dilantin level ER Course With the patient's history exam and presentation Psychiatry specialty was consulted in the emergency room They have recommended medications that were ordered Patient also had blood work to further medically evaluate Patient's Dilantin level was mildly elevated and this is being observed and repeated Patient otherwise remains neurologically intact And given the multiple comorbidities and psychiatric history requires further inpatient care Patient's down to level was repeated until appropriate level was reached Patient required 1 dose of Ativan and Tylenol by myself during his ER stay And transferred to psychiatric facility for further inpatient care Labs Test 10/12/18 11:55 10/12/18 14:05 10/12/18 17:00 10/12/18 21:30 White Blood Count 8.5 K/UL (4.8-10.8) Red Blood Count 5.72 M/UL (4.70-6.10) Hemoglobin 16.2 G/DL (14.2-18.0) Hematocrit 48.8 % (42.0-52.0) Mean Corpuscular Volume 85 FL (80-99) Mean Corpuscular Hemoglobin 28.3 PG (27.0-31.0) Mean Corpuscular Hemoglobin Concent 33.2 G/DL (32.0-36.0) Red Cell Distribution Width 12.3 % (11.6-14.8) Platelet Count 341 K/UL (150-450) Mean Platelet Volume 7.5 FL (6.5-10.1) Neutrophils (%) (Auto) 72.3 % (45.0-75.0) Lymphocytes (%) (Auto) 18.7 % (20.0-45.0) Monocytes (%) (Auto) 7.4 % (1.0-10.0) Eosinophils (%) (Auto) 0.9 % (0.0-3.0) Basophils (%) (Auto) 0.6 % (0.0-2.0) Sodium Level 140 MMOL/L (136-145) Potassium Level 3.7 MMOL/L (3.5-5.1) Chloride Level 100 MMOL/L (98-107) Carbon Dioxide Level 27 MMOL/L (21-32) Anion Gap 13 mmol/L (5-15) Blood Urea Nitrogen 5 mg/dL (7-18) Creatinine 0.8 MG/DL (0.55-1.30) Estimat Glomerular Filtration Rate > 60 mL/min (>60) Glucose Level 122 MG/DL (74-106) Calcium Level 9.1 MG/DL (8.5-10.1) Total Bilirubin 0.3 MG/DL (0.2-1.0) Aspartate Amino Transf (AST/SGOT) 21 U/L (15-37) Alanine Aminotransferase (ALT/SGPT) 19 U/L (12-78) Alkaline Phosphatase 87 U/L (46-116) Total Protein 8.4 G/DL (6.4-8.2) Albumin 4.4 G/DL (3.4-5.0) Globulin 4.0 g/dL Albumin/Globulin Ratio 1.1 (1.0-2.7) Salicylates Level 4.9 ug/mL (2.8-20) Urine Opiates Screen Negative (NEGATIVE) Acetaminophen Level < 2 MCG/ML (10-30) Urine Barbiturates Screen Positive (NEGATIVE) Phencyclidine (PCP) Screen Negative (NEGATIVE) Urine Amphetamines Screen Negative (NEGATIVE) Phenobarbital Level 73.3 ug/mL (15-40) 64.7 ug/mL (15-40) 63.2 ug/mL (15-40) 50.5 ug/mL (15-40) Urine Benzodiazepines Screen Negative (NEGATIVE) Urine Cocaine Screen Negative (NEGATIVE) Urine Marijuana (THC) Screen Positive (NEGATIVE) Serum Alcohol 20 mg/dL Phenytoin (Dilantin) Level < 0.5 ug/mL (10-20) < 0.5 ug/mL (10-20) Labs Test 10/12/18 11:55 White Blood Count 8.5 K/UL (4.8-10.8) Red Blood Count 5.72 M/UL (4.70-6.10) Hemoglobin 16.2 G/DL (14.2-18.0) Hematocrit 48.8 % (42.0-52.0) Mean Corpuscular Volume 85 FL (80-99) Mean Corpuscular Hemoglobin 28.3 PG (27.0-31.0) Mean Corpuscular Hemoglobin Concent 33.2 G/DL (32.0-36.0) Red Cell Distribution Width 12.3 % (11.6-14.8) Platelet Count 341 K/UL (150-450) Mean Platelet Volume 7.5 FL (6.5-10.1) Neutrophils (%) (Auto) 72.3 % (45.0-75.0) Lymphocytes (%) (Auto) 18.7 % (20.0-45.0) Monocytes (%) (Auto) 7.4 % (1.0-10.0) Eosinophils (%) (Auto) 0.9 % (0.0-3.0) Basophils (%) (Auto) 0.6 % (0.0-2.0) Sodium Level 140 MMOL/L (136-145) Potassium Level 3.7 MMOL/L (3.5-5.1) Chloride Level 100 MMOL/L (98-107) Carbon Dioxide Level 27 MMOL/L (21-32) Anion Gap 13 mmol/L (5-15) Blood Urea Nitrogen 5 mg/dL (7-18) Creatinine 0.8 MG/DL (0.55-1.30) Estimat Glomerular Filtration Rate > 60 mL/min (>60) Glucose Level 122 MG/DL (74-106) Calcium Level 9.1 MG/DL (8.5-10.1) Total Bilirubin 0.3 MG/DL (0.2-1.0) Aspartate Amino Transf (AST/SGOT) 21 U/L (15-37) Alanine Aminotransferase (ALT/SGPT) 19 U/L (12-78) Alkaline Phosphatase 87 U/L (46-116) Total Protein 8.4 G/DL (6.4-8.2) Albumin 4.4 G/DL (3.4-5.0) Globulin 4.0 g/dL Albumin/Globulin Ratio 1.1 (1.0-2.7) Salicylates Level 4.9 ug/mL (2.8-20) Urine Opiates Screen Negative (NEGATIVE) Acetaminophen Level < 2 MCG/ML (10-30) Urine Barbiturates Screen Positive (NEGATIVE) Phencyclidine (PCP) Screen Negative (NEGATIVE) Urine Amphetamines Screen Negative (NEGATIVE) Phenobarbital Level 73.3 ug/mL (15-40) Urine Benzodiazepines Screen Negative (NEGATIVE) Urine Cocaine Screen Negative (NEGATIVE) Urine Marijuana (THC) Screen Positive (NEGATIVE) Serum Alcohol 20 mg/dL Last Vital Signs Date Time Temp Pulse Resp B/P (MAP) Pulse Ox O2 Delivery O2 Flow Rate FiO2 10/12/18 11:45 98.1 87 18 112/78 98 Room Air Status: improved Disposition: XFER TO PSYCH HOSP/UNIT Condition: Improved Referrals: NON PHYSICIAN (PCP) Bayron Segura DO Oct 12, 2018 14:00
--- NOTE | 2018-10-12 19:45 | Consultation ---
History of Present Illness General Chief Complaint: General Complaint Present Illness HPI the pt is a 23 yo male with hx of substance use disorder, psychosis and borderline who presents with complaints of ingestion of increased phenobarbital also lethargy. the pt was agitated and was hostile towards the mother, the pt was not suicidal however he was very volatile and the mother stated that she is not able to care for him the pt was crying and agitated, Allergies: Coded Allergies: CODEINE (Unverified Allergy, Unknown, 10/09/18) Medication History Scheduled Aripiprazole* (Abilify*), 2 MG ORAL DAILY, (Reported) Clonazepam (Clonazepam), 1 MG PO BID, (Reported) Desvenlafaxine (Desvenlafaxine Er), 50 MG ORAL DAILY, (Reported) Levetiracetam (Keppra), Unknown Dose ORAL EVERY 12 HOURS, (Reported) Mirtazapine* (Remeron*), 30 MG ORAL BEDTIME, (Reported) Phenobarbital* (Phenobarbital*), Unknown Dose ORAL THREE TIMES A DAY, (Reported) Miscellaneous Medications Prazosin Hcl (Prazosin Hcl), 2 MG PO, (Reported) Discontinued Medications Acetaminophen With Codeine (T#3) (Tylenol #3 Tab*), 1 TAB ORAL Q8H PRN for For Pain Discontinued Reason: Therapy completed Alprazolam (Alprazolam Xr), (Reported) Discontinued Reason: Therapy completed Alprazolam* (Xanax*), 0.5 MG PO QID Discontinued Reason: Therapy completed Alprazolam* (Xanax*), 2 MG ORAL THREE TIMES A DAY, (Reported) Discontinued Reason: Therapy completed Amphet Asp/Amphet/D-Amphet* (Adderall 20 Mg Tablet*), 20 MG ORAL DAILY, ( Reported) Discontinued Reason: Therapy completed Atomoxetine Hcl (Strattera), 40 MG PO DAILY, (Reported) Discontinued Reason: Therapy completed Benztropine Mesylate* (Benztropine Mesylate*), 2 MG ORAL Q8HR Discontinued Reason: Therapy completed Clonazepam* (Klonopin*), 1 MG ORAL Q6H PRN for tid Discontinued Reason: Therapy completed Diphenhydramine Hcl (Benadryl Allergy), 25 MG PO Q6HR Discontinued Reason: Therapy completed Fluoxetine Hcl* (Prozac*), 10 MG ORAL DAILY, (Reported) Discontinued Reason: Therapy completed Gentamicin Sulfate (Gentak), 3.5 GM OP BID Discontinued Reason: Therapy completed Ibuprofen* (Motrin*), 600 MG ORAL Q8H PRN for For Pain Discontinued Reason: Therapy completed Mirtazapine* (Mirtazapine*), (Reported) Discontinued Reason: Therapy completed Sertraline Hcl* (Zoloft*), 50 MG ORAL DAILY Discontinued Reason: Therapy completed Sertraline Hcl* (Zoloft*), 100 MG ORAL DAILY Discontinued Reason: Therapy completed Temazepam* (Temazepam*), (Reported) Discontinued Reason: Therapy completed Unable to Obtain Medications (Unable To Obtain Meds), (Reported) Discontinued Reason: Therapy completed Venlafaxine Hcl* (Venlafaxine Hcl Er*), (Reported) Discontinued Reason: Therapy completed Venlafaxine Hcl* (Effexor*), 75 MG ORAL BID, (Reported) Discontinued Reason: Therapy completed Patient History History Provided By: Patient, Medical Record, PMD Healthcare decision maker Resuscitation status Advanced Directive on File Past Medical/Surgical History Past Medical/Surgical History: (1) Palpitations (2) Acute encephalopathy (3) Benzodiazepine withdrawal (4) Chest wall pain (5) Acute dystonic reaction due to drugs (6) Dystonic drug reaction Review of Systems Psychiatric: Reports: prior hx, anxiety, depressed feelings Physical Exam General Appearance: alert Neurologic: oriented x 3, responsive, depressed affect Last 24 Hour Vital Signs Date Time Temp Pulse Resp B/P (MAP) Pulse Ox O2 Delivery O2 Flow Rate FiO2 10/12/18 19:07 98.2 10/12/18 18:13 98.2 80 18 108/66 99 Room Air 10/12/18 15:51 98.0 79 16 102/64 100 Room Air 10/12/18 14:15 98.0 76 20 114/64 98 Room Air 10/12/18 11:45 98.1 87 18 112/78 98 Room Air 10/12/18 11:09 77 18 Room Air 10/12/18 11:08 98.1 77 18 108/65 98 Room Air 10/12/18 10:09 98.4 84 16 132/82 100 Room Air Laboratory Tests Test 10/12/18 11:55 10/12/18 14:05 11/21/18 17:00 White Blood Count 8.5 K/UL (4.8-10.8) Red Blood Count 5.72 M/UL (4.70-6.10) Hemoglobin 16.2 G/DL (14.2-18.0) Hematocrit 48.8 % (42.0-52.0) Mean Corpuscular Volume 85 FL (80-99) Mean Corpuscular Hemoglobin 28.3 PG (27.0-31.0) Mean Corpuscular Hemoglobin Concent 33.2 G/DL (32.0-36.0) Red Cell Distribution Width 12.3 % (11.6-14.8) Platelet Count 341 K/UL (150-450) Mean Platelet Volume 7.5 FL (6.5-10.1) Neutrophils (%) (Auto) 72.3 % (45.0-75.0) Lymphocytes (%) (Auto) 18.7 % (20.0-45.0) L Monocytes (%) (Auto) 7.4 % (1.0-10.0) Eosinophils (%) (Auto) 0.9 % (0.0-3.0) Basophils (%) (Auto) 0.6 % (0.0-2.0) Sodium Level 140 MMOL/L (136-145) Potassium Level 3.7 MMOL/L (3.5-5.1) Chloride Level 100 MMOL/L (98-107) Carbon Dioxide Level 27 MMOL/L (21-32) Anion Gap 13 mmol/L (5-15) Blood Urea Nitrogen 5 mg/dL (7-18) L Creatinine 0.8 MG/DL (0.55-1.30) Estimat Glomerular Filtration Rate > 60 mL/min (>60) Glucose Level 122 MG/DL (74-106) H Calcium Level 9.1 MG/DL (8.5-10.1) Total Bilirubin 0.3 MG/DL (0.2-1.0) Aspartate Amino Transf (AST/SGOT) 21 U/L (15-37) Alanine Aminotransferase (ALT/SGPT) 19 U/L (12-78) Alkaline Phosphatase 87 U/L (46-116) Total Protein 8.4 G/DL (6.4-8.2) H Albumin 4.4 G/DL (3.4-5.0) Globulin 4.0 g/dL Albumin/Globulin Ratio 1.1 (1.0-2.7) Salicylates Level 4.9 ug/mL (2.8-20) Urine Opiates Screen Negative (NEGATIVE) Acetaminophen Level < 2 MCG/ML (10-30) L Urine Barbiturates Screen Positive (NEGATIVE) H Phencyclidine (PCP) Screen Negative (NEGATIVE) Urine Amphetamines Screen Negative (NEGATIVE) Phenobarbital Level 73.3 ug/mL (15-40) *H 64.7 ug/mL (15-40) *H 63.2 ug/mL (15-40) *H Urine Benzodiazepines Screen Negative (NEGATIVE) Urine Cocaine Screen Negative (NEGATIVE) Urine Marijuana (THC) Screen Positive (NEGATIVE) H Serum Alcohol 20 mg/dL Phenytoin (Dilantin) Level < 0.5 ug/mL (10-20) L < 0.5 ug/mL (10-20) L Height (Feet): 5 Height (Inches): 8.00 Weight (Pounds): 130 Assessment/Plan Assessment/Plan borderline mj abuse mdd psychotic d/o nos -haldol dec 50mg im -seroquel 50mg qhs -the pt will be placed -the pt is not on a hold Rian Ge MD Oct 12, 2018 19:45
[2018-10-13 02:35] VITALS: BP 108/61
[2018-10-13 03:00] VITALS: BP 108/61
== END ==
LOC: EDUNIT# 10:08 → EDBD 10:12 → EMR 11:26
DX: F29 Unspecified psychosis not due to a substance or known physiological condition (principal); R78.89 Finding of other specified substances, not normally found in blood
CPT/HCPCS: 36415; 80053; 80184; 80185; 80307; 85025; 99283; G0480; J1631; 80329

== ENCOUNTER 2018-11-03 14:02 | Emergency (ER) | payer BC, MEDICAID ==
[~2018-11-03] VITALS: Ht 170.2 cm; Wt 49.9 kg
[2018-11-03 14:02] VITALS: BP 102/48
[~2018-11-03 14:02] MED LIST changes: -Haloperidol Decanoate 50mg Inj IM SCH; -LORazepam 1mg tab ORAL ONE
[2018-11-03 14:03] VITALS: BP 102/48
--- NOTE | 2018-11-03 14:29 | Emergency Room Report ---
History of Present Illness General Chief Complaint: Overdose Source: EMS Present Illness HPI EMS was called to this patient's home for neurologic overdose. Family believes that he emptied a bottle of phenobarbital. EMS stated that there was no suicide gesture alleged. Patient seen in September and transferred to psychiatric facility. Our psychiatrist gave dx: borderline, major depressive disorder Also he had been seen for OD 3 days prior to that. Tested + for barbiturates. Allergies: Coded Allergies: CODEINE (Unverified Allergy, Unknown, 10/09/18) Patient History Limited by: other - patient left Past Medical History: see triage record, old chart reviewed Social History: Reports: smoking, alcohol use, drug use Social History Narrative at home Reviewed Nursing Documentation: PMH: Agreed; PSxH: Agreed Nursing Documentation-PMH Hx Cardiac Problems: No Hx Hypertension: No Hx Pacemaker: No Hx Asthma: No Hx COPD: No Hx Diabetes: No Hx Cancer: No Hx Gastrointestinal Problems: No Hx Dialysis: No Hx Neurological Problems: No Hx Cerebrovascular Accident: No Hx Seizures: Yes Review of Systems All Other Systems: limited Physical Exam Vital Signs Date Time Temp Pulse Resp B/P (MAP) Pulse Ox O2 Delivery O2 Flow Rate FiO2 11/03/18 13:48 98.1 109 14 102/48 99 Room Air Sp02 EP Interpretation: reviewed, normal General Appearance: well appearing, no apparent distress, GCS 15 Head: normocephalic Eyes: bilateral eye Scleral Injection ENT: moist mucus membranes Neck: supple Respiratory: no respiratory distress Cardiovascular #1: regular rate, rhythm Gastrointestinal: normal inspection Musculoskeletal: back normal, gait/station normal, normal range of motion Neurologic: alert, normal gait Psychiatric: anxious Skin: normal inspection, warm/dry Medical Decision Making Diagnostic Impression: Primary Impression: Drug overdose Qualified Codes: T50.904A - Poisoning by unspecified drugs, medicaments and biological substances, undetermined, initial encounter ER Course Patient presents after allegedly overdosed on phenobarbital. After giving a urine sample and being escorted to the room the patient ran out of the emergency department. Security saw him across the street heading towards his home. I requested that [employer] be called. In addition I attempted to contact the patient at the phone number that's in registration. The message boxes full. Left message for mother. She came to ED and said he was home and "stable". Status: unchanged Disposition: ELOPED Condition: Stable Giovanni Mullins MD Nov 03, 2018 14:29
[2018-11-03] MEDS ORDERED: UNOBMED (14:54)
== END 2018-11-03 14:03 | disposition left against medical advice (07) ==
LOC: EDBD 14:02 → EMR 14:03
DX: T42.3X1A Poisoning by barbiturates, accidental (unintentional), initial encounter (principal); F32.9 Major depressive disorder, single episode, unspecified; Z88.5 Allergy status to narcotic agent
CPT/HCPCS: 99283

== ENCOUNTER 2018-12-31 19:18 | Emergency (ER) | payer BC, MEDICAID ==
[~2018-12-31] VITALS: Ht 175.3 cm; Wt 72.6 kg
[2018-12-31] VITALS (18 sets, daily range): BP systolic 118–133; BP diastolic 68–91
--- NOTE | 2018-12-31 19:20 | NUR ---
ED Nurse Note: Patient macy RA 62 accompanied by [employer] for a behavioral complaint. patient reports no pain at this time, at time of arrival patient states that he took 3 pills of clonazepam about an hour ago
--- NOTE | 2018-12-31 19:20 | NUR ---
ED Nurse Note: pt came in restless pt was placed in gown and connected to monitor tech pt vss at the moment, pt is continously getting out of bed pt was asked to sit back down and stay in bed while further orders were being awaited
--- NOTE | 2018-12-31 19:25 | Emergency Room Report ---
History of Present Illness General Chief Complaint: Behavioral Complaint Source: Medical Record (Esdras River MD) Present Illness HPI Patient is a 23-year-old male brought in by EMS after reported overdose of Klonopin as well as alcohol. Ingestion occurred approximately 2 hours prior to arrival. He was noted to have ingested Klonopin 1 mg tablets. Patient a prior history of psychiatric disease. Patient was brought in by EMS with [employer]. Patient reportedly had similar symptoms in the past and has previously been placed on psychiatric hold. (Esdras River MD) Allergies: Coded Allergies: CODEINE (Unverified Allergy, Unknown, 10/09/18) Patient History Past Medical History: see triage record Reviewed Nursing Documentation: PMH: Agreed; PSxH: Agreed (Esdras River MD) Nursing Documentation-PMH Past Medical History: No History, Except For Hx Cardiac Problems: No Hx Hypertension: No Hx Pacemaker: No Hx Asthma: No Hx COPD: No Hx Diabetes: No Hx Cancer: No Hx Gastrointestinal Problems: No Hx Dialysis: No Hx Neurological Problems: No Hx Cerebrovascular Accident: No Hx Seizures: Yes (Esdras River MD) Review of Systems All Other Systems: negative except mentioned in HPI (Esdras River MD) Physical Exam Vital Signs Date Time Temp Pulse Resp B/P (MAP) Pulse Ox O2 Delivery O2 Flow Rate FiO2 12/31/18 19:15 98.4 95 19 133/82 98 Room Air Sp02 EP Interpretation: reviewed, normal General Appearance: alert/responsive, no apparent distress, GCS 15, non-toxic Head: atraumatic Eyes: PERRL, lids + conjunctiva normal ENT: hearing intact, no angioedema Neck: supple/symm/no masses, no meningismus Respiratory: effort normal, no wheezing, chest symmetrical Cardiovascular: regular rate, rhythm, no edema Cardiovascular #2: 2+ carotid (R), 2+ carotid (L), 2+ dorsalis pedis (R), 2+ dorsalis pedis (L) Gastrointestinal: non-tender, no mass, non-distended, no rebound/guarding, normal bowel sounds Musculoskeletal: gait & station normal, strength & tone normal, normal ROM, non -tender Neurologic: normal inspection, CN II-XII intact, oriented x3, sensory intact, normal speech Psychiatric: normal inspection Skin: no rash, well hydrated Lymphatic: normal inspection (Esdras River MD) Medical Decision Making Restraint Attestation I, Esdras River MD, have personally evaluated this patient. Laboratory tests have been reviewed and addressed accordingly. The patient is deemed to present a danger to themselves and/or others. This is based on the exam, history ( provided by patient, EMS/[employer] and/or family) and observed or reported behavior. Attempts for non-invasive measures have been considered and/or attempted, however, have been futile. It is in the best interest of the nursing staff, the patient, and others involved in this patient's care that behavioral restraints be applied. Patient evaluation reveals the following: Markedly agitated patient threatening staff. (Esdras River MD) ER Course Patient presented after reported medication overdose. Differential diagnosis include was not limited to, ingestion, nontoxic overdose, Tylenol overdose among others. Because of complexity of patient's case laboratory testing and imaging studies were ordered. Patient was noted to have some evidence of recent substance ingestion and has some pill fragments currently on his lips. Patient was noted to have been awake and alert. He reports taking only 3 Klonopin.Patient will be placed on a hold by [employer]. Patient was endorsed to Dr. Mullins pending sobering. Labs Test 12/31/18 19:30 01/01/19 03:53 White Blood Count 10.2 K/UL (4.8-10.8) Red Blood Count 5.49 M/UL (4.70-6.10) Hemoglobin 15.9 G/DL (14.2-18.0) Hematocrit 49.5 % (42.0-52.0) Mean Corpuscular Volume 90 FL (80-99) Mean Corpuscular Hemoglobin 29.0 PG (27.0-31.0) Mean Corpuscular Hemoglobin Concent 32.1 G/DL (32.0-36.0) Red Cell Distribution Width 11.9 % (11.6-14.8) Platelet Count 288 K/UL (150-450) Mean Platelet Volume 7.3 FL (6.5-10.1) Neutrophils (%) (Auto) 64.1 % (45.0-75.0) Lymphocytes (%) (Auto) 27.8 % (20.0-45.0) Monocytes (%) (Auto) 5.6 % (1.0-10.0) Eosinophils (%) (Auto) 1.7 % (0.0-3.0) Basophils (%) (Auto) 0.8 % (0.0-2.0) Urine Color Pale yellow Urine Appearance Clear Urine pH 6 (4.5-8.0) Urine Specific [place] 1.005 (1.005-1.035) Urine Protein Negative (NEGATIVE) Urine Glucose (UA) Negative (NEGATIVE) Urine Ketones Negative (NEGATIVE) Urine Blood Negative (NEGATIVE) Urine Nitrite Negative (NEGATIVE) Urine Bilirubin Negative (NEGATIVE) Urine Urobilinogen Normal MG/DL (0.0-1.0) Urine Leukocyte Esterase Negative (NEGATIVE) Sodium Level 142 MMOL/L (136-145) Potassium Level 3.7 MMOL/L (3.5-5.1) Chloride Level 104 MMOL/L (98-107) Carbon Dioxide Level 26 MMOL/L (21-32) Anion Gap 12 mmol/L (5-15) Blood Urea Nitrogen 5 mg/dL (7-18) Creatinine 0.9 MG/DL (0.55-1.30) Estimat Glomerular Filtration Rate > 60 mL/min (>60) Glucose Level 99 MG/DL (74-106) Calcium Level 9.1 MG/DL (8.5-10.1) Total Bilirubin 0.4 MG/DL (0.2-1.0) Aspartate Amino Transf (AST/SGOT) 18 U/L (15-37) Alanine Aminotransferase (ALT/SGPT) 19 U/L (12-78) Alkaline Phosphatase 86 U/L (46-116) Total Protein 7.5 G/DL (6.4-8.2) Albumin 4.3 G/DL (3.4-5.0) Globulin 3.2 g/dL Albumin/Globulin Ratio 1.3 (1.0-2.7) Salicylates Level 2.4 ug/mL (2.8-20) Urine Opiates Screen Negative (NEGATIVE) Acetaminophen Level < 2 MCG/ML (10-30) Urine Barbiturates Screen Negative (NEGATIVE) Phencyclidine (PCP) Screen Negative (NEGATIVE) Urine Amphetamines Screen Negative (NEGATIVE) Urine Benzodiazepines Screen Negative (NEGATIVE) Urine Cocaine Screen Negative (NEGATIVE) Urine Marijuana (THC) Screen Positive (NEGATIVE) Serum Alcohol 31 mg/dL (Esdras River MD) ER Course Please see above note. Patient is sedated and restraints are discontinued. Blood alcohol was repeated and is now 31. He is medically stable for psychiatric evaluation and treatment. 4:[address] Ferrari. (Giovanni Mullins MD) Last Vital Signs Date Time Temp Pulse Resp B/P (MAP) Pulse Ox O2 Delivery O2 Flow Rate FiO2 12/31/18 19:15 98.4 95 19 133/82 98 Room Air Status: improved (Esdras River MD) Status: improved (Giovanni Mullins MD) Disposition: XFER TO PSYCH HOSP/UNIT Condition: Stable Esdras River MD Dec 31, 2018 19:24 Giovanni Mullins MD Jan 01, 2019 04:16
--- NOTE | 2018-12-31 19:25 | NUR ---
ED Nurse Note: PT ITEMS PLACES IN LOCKER #2
--- NOTE | 2018-12-31 19:35 | NUR ---
Spoke with Avinash at poison control center, states need to draw Tylenol level, chemistry,alcohol level and salicilates and watch patient for next 4-6 hours for dizziness, respiratory depression, LOC. Did not advise giving charcoal at this time(patient took clonazepam x3 and alcohol 1-1 and 1/2 hour ago.
--- NOTE | 2018-12-31 19:35 | NUR ---
ED Nurse Note: pt began to jump out of bed and pt was again asked to sit down, pt shows signs of agitation, pt shut room door and pulled out medical drawers
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
--- NOTE | 2018-12-31 19:50 | NUR ---
ED Nurse Note: behavioral restraints placed on 1949.
[2018-12-31] MEDS ORDERED: DiphenhydrAMINE 50mg/ml Inj IM ONE (20:00)
[2018-12-31] MEDS ORDERED: Haloperidol 5mg/ml Inj IM ONE (20:00)
[2018-12-31 20:09] LABS: ANION GAP 12 mmol/L (5-15); BLOOD UREA NITROGEN 5 mg/dL (7-18); CALCIUM 9.1 MG/DL (8.5-10.1); CARBON DIOXIDE 26 MMOL/L (21-32); CHLORIDE 104 MMOL/L (98-107); CREATININE 0.9 MG/DL (0.55-1.30); POTASSIUM 3.7 MMOL/L (3.5-5.1); SODIUM 142 MMOL/L (136-145)
[2018-12-31 20:15] LABS: APPEARANCE,URINE CLEAR; BILIRUBIN, URINE NEGATIVE (NEGATIVE); COLOR,URINE PALE YELLOW; GLUCOSE, URINE (UA) NEGATIVE (NEGATIVE); KETONES,URINE NEGATIVE (NEGATIVE); LEUKOCYTE ESTERASE ,URINE NEGATIVE (NEGATIVE); NITRITE,URINE NEGATIVE (NEGATIVE); PH,URINE 6 (4.5-8.0); PROTEIN,URINE NEGATIVE (NEGATIVE); UROBILINOGEN,URINE NORMAL MG/DL (0.0-1.0)
[2018-12-31 20:20] LABS: ALANINE AMINOTRANSFERASE 19 U/L (12-78); ALBUMIN 4.3 G/DL (3.4-5.0); ALBUMIN/GLOBULIN RATIO 1.3 (1.0-2.7); ALKALINE PHOSPHATASE 86 U/L (46-116); ASPARTATE AMINO TRANSFERASE 18 U/L (15-37); BILIRUBIN,TOTAL 0.4 MG/DL (0.2-1.0)
[2018-12-31 20:22] LABS: BASOPHILS % (AUTO) 0.8 % (0.0-2.0); EOSINOPHILS % (AUTO) 1.7 % (0.0-3.0); HEMATOCRIT 49.5 % (42.0-52.0); HEMOGLOBIN 15.9 G/DL (14.2-18.0); LYMPHOCYTES % (AUTO) 27.8 % (20.0-45.0); MEAN CORPUSCULAR VOLUME 90 FL (80-99); MONOCYTES % (AUTO) 5.6 % (1.0-10.0); NEUTROPHILS % (AUTO) 64.1 % (45.0-75.0); PLATELET COUNT 288 K/UL (150-450); RED BLOOD COUNT 5.49 M/UL (4.70-6.10); RED CELL DISTRIBUTION WIDTH 11.9 % (11.6-14.8); WHITE BLOOD COUNT 10.2 K/UL (4.8-10.8)
[2018-12-31] MEDS ORDERED: ZyPREXA Zydis 5mg tab ORAL ONE (20:45)
--- NOTE | 2018-12-31 21:50 | NUR ---
ED Nurse Note: PT WAS OFFERED WATER AND A SANDWHCIH
[2018-12-31] MEDS ORDERED: LORazepam Inj 2mg/ml 1ml IM ONE (23:15)
[2019-01-01] VITALS (9 sets, daily range): BP systolic 105–121; BP diastolic 52–78
--- NOTE | 2019-01-01 00:15 | NUR ---
Anjali just arrived.
--- NOTE | 2019-01-01 00:20 | NUR ---
Restraints off, sitter at bedside, notified.
--- NOTE | 2019-01-01 00:40 | NUR ---
ED Nurse Note: pt had 3 bottles of water and pt has sandwhiches on bedside. pt is calm and sitter is at bedside. pt shows no signs of distress at the moment, pt is no longer combative
--- NOTE | 2019-01-01 04:29 | NUR ---
Spoke with Vickey at [facility]-no beds
--- NOTE | 2019-01-01 05:00 | NUR ---
ED Nurse Note: breakfast ordered for patient
--- NOTE | 2019-01-01 05:14 | NUR ---
-no beds, call after 10am.
--- NOTE | 2019-01-01 07:02 | NUR ---
HAND-OFF: Report given to WILI Gallardo.
--- NOTE | 2019-01-01 07:14 | NUR ---
ED Nurse Note: REPORT RECEIVED FROM WILI ATKINSON. PT SLEEPING PEACEFULLY IN BED IN NAD. EASILY AROUSABLE TO VOICE. AOX4. PT PLACED ON MONITOR. VSS. MEAL TRAY ORDERED.
--- NOTE | 2019-01-01 09:15 | NUR ---
ED Nurse Note: BREAKFAST TRAY PROVIDED FOR PT.
--- NOTE | 2019-01-01 12:30 | NUR ---
ED Nurse Note: LUNCH TRAY PROVIDED FOR PT.
--- NOTE | 2019-01-01 13:05 | NUR ---
ED Nurse Note: [facility] CM CALLED FOR REPORT. CALL DISCONNECTED. CALLED BACK AND NO ANSWER.
--- NOTE | 2019-01-01 13:20 | NUR ---
ED Nurse Note: [facility] CALLED FOR PT REPORT. REPORT GIVEN TO CHARGE NURSE JOAN. PER CHARGE, FACILITY IS READY TO ACCEPT PT. CHARGE NURSE AWARE LIFELINE ETA TO [facility] ER [id number].
--- NOTE | 2019-01-01 14:04 | NUR ---
ED Nurse Note: LIFELINE AT BEDSIDE. PT AOX4. REPORT GIVEN TO EMS. PT TRANSFERRED TO [facility] WITH ALL BELONGINGS ACCOMPANIED BY EMS. VSS.
== END 2019-01-01 14:12 ==
LOC: EDBD 19:18 → EMR 19:26
DX: T42.4X1A Poisoning by benzodiazepines, accidental (unintentional), initial encounter (principal); T51.91XA Toxic effect of unspecified alcohol, accidental (unintentional), initial encounter; Y92.9 Unspecified place or not applicable; F91.8 Other conduct disorders
CPT/HCPCS: 36415; 80053; 80307; 81003; 85025; 96372; 99285; G0480; J1200; J1630; 80329

== ENCOUNTER 2019-03-12 23:13 | Emergency (ER) | payer BC, MEDICAID ==
[~2019-03-12] VITALS: Ht 175.3 cm; Wt 52.2 kg
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
[2019-03-12 23:48] VITALS: BP 134/85
[2019-03-12 23:50] LABS: BASOPHILS % (AUTO) 1.1 % (0.0-2.0); HEMATOCRIT 44.7 % (42.0-52.0); HEMOGLOBIN 15.1 G/DL (14.2-18.0); LYMPHOCYTES % (AUTO) 31.4 % (20.0-45.0); MEAN CORPUSCULAR VOLUME 84 FL (80-99); MONOCYTES % (AUTO) 8.4 % (1.0-10.0); NEUTROPHILS % (AUTO) 57.2 % (45.0-75.0); PLATELET COUNT 264 K/UL (150-450); RED BLOOD COUNT 5.29 M/UL (4.70-6.10); RED CELL DISTRIBUTION WIDTH 11.9 % (11.6-14.8); WHITE BLOOD COUNT 8.2 K/UL (4.8-10.8)
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
[2019-03-12 23:59] LABS: ANION GAP 12 mmol/L (5-15); BLOOD UREA NITROGEN 11 mg/dL (7-18); CALCIUM 9.4 MG/DL (8.5-10.1); CARBON DIOXIDE 26 MMOL/L (21-32); CHLORIDE 104 MMOL/L (98-107); CREATININE 0.7 MG/DL (0.55-1.30); POTASSIUM 3.8 MMOL/L (3.5-5.1); SODIUM 141 MMOL/L (136-145)
[2019-03-13 00:03] LABS: ALANINE AMINOTRANSFERASE 19 U/L (12-78); ALBUMIN 4.1 G/DL (3.4-5.0); ALBUMIN/GLOBULIN RATIO 1.2 (1.0-2.7); ALKALINE PHOSPHATASE 85 U/L (46-116); ASPARTATE AMINO TRANSFERASE 14 U/L (15-37); BILIRUBIN,TOTAL 0.3 MG/DL (0.2-1.0)
--- NOTE | 2019-03-13 00:38 | NUR ---
Pts belongings has been locked and placed in locker #3
[2019-03-13 01:03] LABS: APPEARANCE,URINE CLEAR; BILIRUBIN, URINE NEGATIVE (NEGATIVE); COLOR,URINE PALE YELLOW; GLUCOSE, URINE (UA) NEGATIVE (NEGATIVE); KETONES,URINE NEGATIVE (NEGATIVE); LEUKOCYTE ESTERASE ,URINE NEGATIVE (NEGATIVE); NITRITE,URINE NEGATIVE (NEGATIVE); PH,URINE 5 (4.5-8.0); PROTEIN,URINE NEGATIVE (NEGATIVE); UROBILINOGEN,URINE NORMAL MG/DL (0.0-1.0)
--- NOTE | 2019-03-13 01:15 | NUR ---
ER Nurse Note: All orders completed per ERMD orders. Food, juice, urinal provided per pt request. Pt is calm, comfortable, no signs of distress. Pt alseep, VSS. All safety measures met; will continue to montior.
[2019-03-13 04:00] VITALS: BP 126/78
--- NOTE | 2019-03-13 05:13 | NUR ---
ER Nurse Note: Pt calm, cooperative, asleep. Pt VSS, no signs of distress. Pt is medically cleared; awaiting psych evaluation/ placement for continuity of care. Belongings removed and stored in locker three by second RN on pt arrival. All safety measures met; will continue to [facility].
[2019-03-13 06:54] VITALS: BP 124/68
--- NOTE | 2019-03-13 07:06 | NUR ---
ER Nurse Note: Report given to WILI Villa for continuity of care. Pt stable, VSS, no signs of distress.
--- NOTE | 2019-03-13 07:12 | NUR ---
ED Nurse Note: Pt asleep comfortably in bed w/ breakfast tray at the bedside table. No acute distress noted.
[2019-03-13 08:49] VITALS: BP 125/65
--- NOTE | 2019-03-13 09:16 | NUR ---
ED Nurse Note: Pt offered toileting and water. Pt was also given a book.
[2019-03-13 09:40] VITALS: BP 125/65
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
--- NOTE | 2019-03-13 10:33 | NUR ---
ED Nurse Note: patient reported anxious feeling and requested Ativan 1-2mg. ERMD made aware.
[2019-03-13] MEDS ORDERED: LORazepam 1mg tab ORAL ONE (10:45)
--- NOTE | 2019-03-13 10:52 | NUR ---
ED Nurse Note: Report given to jacklyn Tavarez [facility]. pt's mother at bedside.
[2019-03-13 12:00] VITALS: BP 140/82
--- NOTE | 2019-03-13 12:00 | NUR ---
ED Nurse Note: pt left department in stable condition.
== END 2019-03-13 12:00 ==
LOC: EMR 23:26
DX: F60.9 Personality disorder, unspecified (principal); F10.129 Alcohol abuse with intoxication, unspecified; R45.850 Homicidal ideations; F79 Unspecified intellectual disabilities; Z88.6 Allergy status to analgesic agent; G40.909 Epilepsy, unspecified, not intractable, without status epilepticus
CPT/HCPCS: 36415; 80053; 80299; 80307; 81003; 85025; 99285; G0480; 80329

== ENCOUNTER 2019-06-04 19:12 | Emergency (ER) | payer BC, MEDICAID ==
[~2019-06-04] VITALS: Ht 177.8 cm; Wt 61.2 kg
[2019-06-04] MEDS ORDERED: NKM (19:20)
[2019-06-04 19:40] VITALS: BP 129/70
--- NOTE | 2019-06-04 19:40 | NUR ---
PT ELOPED FROM ROOM, NOT SEEN BY NURSE.
[2019-06-04] MEDS ORDERED: Piperacillin/Tazobactam 3.375 GM in NS 110 ML IVPB ONE (19:45)
--- NOTE | 2019-06-04 21:00 | Emergency Room Report ---
History of Present Illness General Chief Complaint: Skin Rash/Abscess Source: Patient (Deon Henderson) Present Illness HPI 23-year-old male with extensive history of substance abuse been here multiple times here complaining of pain in left foot. Patient does not recall stepping on any object however reports that he has an infected blister on the bottom of his left foot for the past 3 days. Denies fever and chills, rating his pain 5 out of 10 without radiation denying tingling numbness. Patient also has a minor blistering of the right dorsum of his foot denying any recent fall, calf tenderness, chest pain, shortness of breath, palpitation and other associated symptoms patient has not taken any medication to relieve his symptoms. (Deon Henderson) Allergies: Coded Allergies: CODEINE (Unverified Allergy, Unknown, 10/09/18) Patient History Past Medical History: see triage record Past Surgical History: unable to obtain Pertinent Family History: none Immunizations: UTD Reviewed Nursing Documentation: PMH: Agreed; PSxH: Agreed (Deon Henderson) Nursing Documentation-PMH Past Medical History: No History, Except For Hx Cardiac Problems: No Hx Hypertension: No Hx Pacemaker: No Hx Asthma: Yes Hx COPD: No Hx Diabetes: No Hx Cancer: No Hx Gastrointestinal Problems: No Hx Dialysis: No Hx Neurological Problems: No Hx Cerebrovascular Accident: No Hx Seizures: Yes (Deon Henderson) Review of Systems All Other Systems: negative except mentioned in HPI (Deon Henderson) Physical Exam Vital Signs Date Time Temp Pulse Resp B/P (MAP) Pulse Ox O2 Delivery O2 Flow Rate FiO2 06/04/19 19:17 98.6 99 12 129/70 (89) 96 Room Air Sp02 EP Interpretation: reviewed, normal General Appearance: normal inspection, well appearing, no apparent distress, alert, GCS 15, non-toxic Head: normocephalic, atraumatic Eyes: bilateral eye normal inspection, bilateral eye PERRL ENT: normal ENT inspection, hearing grossly normal, normal pharynx Neck: normal inspection, full range of motion, supple, thyroid normal, no carotid bruits Respiratory: normal inspection, chest non-tender, lungs clear, no rhonchi, no retraction, no wheezing Cardiovascular #1: normal inspection, no edema, no murmur, normal capillary refill Gastrointestinal: normal inspection, non tender, soft Rectal: deferred Genitourinary: no CVA tenderness Neurologic: normal inspection, alert, oriented x3 Psychiatric: normal inspection, judgement/insight normal, memory normal Skin: no rash, other - Infected ulcer in the bottom of left foot, superficial infection of dorsum of right foot Lymphatic: normal inspection, no adenopathy (Deon Henderson) Medical Decision Making PA Attestation All diagnoses and treatment plans were reviewed and discussed with my supervising physician Dr. Mullins (Deon Henderson) Diagnostic Impression: Primary Impression: Cellulitis of left foot Additional Impressions: Foot ulcer Eloped from emergency department ER Course 23-year-old male with extensive history of substance abuse been here multiple times here complaining of pain in left foot. Patient does not recall stepping on any object however reports that he has an infected blister on the bottom of his left foot for the past 3 days. Denies fever and chills, rating his pain 5 out of 10 without radiation denying tingling numbness. Patient also has a minor blistering of the right dorsum of his foot denying any recent fall, calf tenderness, chest pain, shortness of breath, palpitation and other associated symptoms patient has not taken any medication to relieve his symptoms. Ddx considered but are not limited to : Cellulitis, DVT, superficial infection, abscess Vital signs: are WNL, pt. is afebrile H&PE are most consistent with: Cellulitis of left foot secondary to foot ulcer ORDERS: X-ray left foot, [facility] ED INTERVENTIONS: None required at this time. After x-ray was completed patient eloped before any medication was administered. X-ray was reviewed and no sign of foreign body no osteomyelitis noted however patient did not receive proper treatment for the cellulitis of his left foot prior to departure. (Deon Henderson) Other X-Ray Diagnostic Results Other X-Ray Diagnostic Results : X-Ray ordered: foot # of Views/Limited Vs Complete: 3 View Indication: Pain EP Interpretation: Yes PA Xray: Interpretation reviewed, by supervising MD, and agrees with findings. Interpretation: no dislocation, no soft tissue swelling, no fractures Impression: No acute disease Electronically Signed by: Deon Fisher PA-C (Deon Henderson) Other X-Ray Diagnostic Results : Electronically Signed by: Diana Duque documentation of Xray reviewed by me and is accurate, Giovanni Mullins MD (Giovanni Mullins MD) Last Vital Signs Date Time Temp Pulse Resp B/P (MAP) Pulse Ox O2 Delivery O2 Flow Rate FiO2 06/04/19 19:17 98.6 99 12 129/70 (89) 96 Room Air (Deon Henderson) Disposition: AGAINST MEDICAL ADVICE Condition: Stable Referrals: [facility],REFERRING (PCP) Patient Instructions: Cellulitis, [id number] Deon Henderson Jun 04, 2019 21:00 Giovanni Mullins MD Jun 07, 2019 02:16
[2019-06-05] MEDS ORDERED: BACTRIM DS TAB1 EAC1 ORAL (10:08)
--- NOTE | 2019-06-05 13:00 | Diagnostic Imaging Report ---
Indication: Left foot pain Technique: 3 views left foot Comparison: none Findings: No acute fractures. No dislocations. The joint spaces are preserved. Impression: Negative
== END 2019-06-04 20:00 | disposition left against medical advice (07) ==
LOC: EMR 19:48
DX: L03.116 Cellulitis of left lower limb (principal); L97.529 Non-pressure chronic ulcer of other part of left foot with unspecified severity; L08.9 Local infection of the skin and subcutaneous tissue, unspecified; Z88.6 Allergy status to analgesic agent
CPT/HCPCS: 96365; 99284

== ENCOUNTER 2019-06-05 09:42 | Emergency (ER) | payer BC, MEDICAID ==
[~2019-06-05] VITALS: Ht 177.8 cm; Wt 65.8 kg
[~2019-06-05 09:42] MED LIST changes: +NKM
--- NOTE | 2019-06-05 09:49 | NUR ---
ED Nurse Note: Patient walked into ED c/o left foot infection on the sole area, skin integrity is broken, appears to be "popped blister." patient reports he got this about 2 days ago. seen on the right toes as well. patient is alert awake x4 ambulatory, breathing unlabored and even.
[2019-06-05] MEDS ORDERED: BACTRIM DS TAB1 EAC1 ORAL (10:08)
--- NOTE | 2019-06-05 10:09 | Emergency Room Report ---
History of Present Illness General Chief Complaint: Skin Rash/Abscess Source: Patient Present Illness HPI 23-year-old male presents with right foot pain, blisters on his feet that started 2 days ago, patient states that he was running for greater than 5 hours , denies any fevers or chills, he states the blisters popped and is worried about it getting infected, he denies any fever/chills Allergies: Coded Allergies: CODEINE (Unverified Allergy, Unknown, 10/09/18) Patient History Past Medical History: see triage record Social History: Reports: smoking Reviewed Nursing Documentation: PMH: Agreed; PSxH: Agreed Nursing Documentation-PMH Past Medical History: No History, Except For Hx Cardiac Problems: No Hx Hypertension: No Hx Pacemaker: No Hx Asthma: Yes Hx COPD: No Hx Diabetes: No Hx Cancer: No Hx Gastrointestinal Problems: No Hx Dialysis: No Hx Neurological Problems: No Hx Cerebrovascular Accident: No Hx Seizures: Yes Review of Systems Constitutional: Denies: chills, fever Eye: Denies: blurred vision, double vision ENT: Denies: throat pain, nasal discharge Respiratory: Denies: cough, shortness of breath Cardiovascular: Denies: chest pain, palpitations Gastrointestinal: Denies: abdominal pain, diarrhea, nausea, vomiting Genitourinary: Denies: dysuria, pain Musculoskeletal: Denies: back pain, muscle pain Skin: Denies: rash, lesions Neurological: Denies: headache, focal weakness Hematologic/Lymphatic: Denies: easy bleeding, easy bruising All Other Systems: negative except mentioned in HPI Physical Exam Vital Signs Date Time Temp Pulse Resp B/P (MAP) Pulse Ox O2 Delivery O2 Flow Rate FiO2 06/05/19 09:44 98.2 91 20 115/78 (90) 96 Room Air Sp02 EP Interpretation: reviewed, normal General Appearance: well appearing, no apparent distress, alert Head: normocephalic, atraumatic Eyes: bilateral eye PERRL, bilateral eye EOMI ENT: uvula midline, moist mucus membranes Neck: supple, thyroid normal, supple/symm/no masses Respiratory: lungs clear, no respiratory distress, no retraction, no accessory muscle use Cardiovascular #1: normal peripheral pulses, regular rate, rhythm, no edema, no gallop, no murmur Gastrointestinal: non tender, soft, no guarding, no rebound Musculoskeletal: other - Right lower externally: 2+ PT DP, blisters on the bottom of the right foot, no evidence of superinfection, no erythema, Neurologic: alert, oriented x3 Psychiatric: mood/affect normal Skin: no rash, warm/dry Medical Decision Making Diagnostic Impression: Primary Impression: Blister of foot without infection ER Course Pt with blisters on the feet, patient counseled to keep it clean, proper wound care was counseled, and the wounds were dressed, patient given a prescription for Bactrim given risk of possible superinfection Last Vital Signs Date Time Temp Pulse Resp B/P (MAP) Pulse Ox O2 Delivery O2 Flow Rate FiO2 06/05/19 09:44 98.2 91 20 115/78 (90) 96 Room Air Disposition: HOME, SELF-CARE Condition: Stable Scripts Trimethoprim/Sulfamethoxazole 160/800* (BACTRIM DS TABLET*) 1 Each Tablet 1 TAB ORAL Q12H, #14 TAB 0 Refills Prov: Juan Luis Simmons M.D. 06/05/19 Referrals: [facility] Patient Instructions: Blisters Additional Instructions: The patient was provided with discharge instructions, notified to follow-up with a primary care doctor and or specialist in the next 24-48 hours, and to return to the ED if they have worsening of their symptoms. Please note that this report is being documented using [employer] technology. This can lead to erroneous entry secondary to incorrect interpretation by the dictating instrument. Juan Luis Simmons M.D. Jun 05, 2019 10:09
[2019-06-05 10:10] VITALS: BP 115/78
[2019-06-05] MEDS ORDERED: Bacitracin Oint UD TOPIC ONE (10:15)
[2019-06-05 10:29] VITALS: BP 115/78
--- NOTE | 2019-06-05 10:29 | NUR ---
ER DISCHARGE NOTE: Patient is cleared to be discharged per ERMD DR BURGOS, dressing applied as ordered by . pt is aox4, on room air, with stable vital signs. pt was given dc and prescription instructions, pt was able to verbalize understanding, pt id band removed without complications. pt is able to ambulate with steady gait. pt took all belongings.
== END 2019-06-05 10:32 | disposition home or self-care (01) ==
LOC: EMR 10:30
DX: S90.821A Blister (nonthermal), right foot, initial encounter (principal); J45.909 Unspecified asthma, uncomplicated; G40.909 Epilepsy, unspecified, not intractable, without status epilepticus; F17.200 Nicotine dependence, unspecified, uncomplicated; Y93.02 Activity, running; Y92.9 Unspecified place or not applicable; Z88.5 Allergy status to narcotic agent
CPT/HCPCS: 99282

== ENCOUNTER 2020-02-08 21:38 | Emergency (ER) | payer BC, MEDICAID ==
[~2020-02-08] VITALS: Ht 177.8 cm; Wt 61.2 kg
[~2020-02-08 21:38] MED LIST changes: +BACTRIM DS TAB1 EAC1 ORAL
[2020-02-08 21:49] VITALS: BP 122/76
[2020-02-08] MEDS ORDERED: IBUPROFEN600 MG ORAL (21:50)
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
[2020-02-08 22:00] VITALS: BP 122/76
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
== END 2020-02-08 22:00 | disposition home or self-care (01) ==
LOC: EMR 21:56
DX: S09.90XA Unspecified injury of head, initial encounter (principal); F07.81 Postconcussional syndrome; J45.909 Unspecified asthma, uncomplicated; G40.909 Epilepsy, unspecified, not intractable, without status epilepticus; Y04.2XXA Assault by strike against or bumped into by another person, initial encounter; Y93.9 Activity, unspecified; Y92.9 Unspecified place or not applicable; Z88.5 Allergy status to narcotic agent
CPT/HCPCS: 70450; Z7502; 99284

== ENCOUNTER 2020-05-21 03:02 | Emergency (ER) | payer MEDICAID ==
[~2020-05-21] VITALS: Ht 177.8 cm; Wt 65.8 kg
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
[2020-05-21 04:15] VITALS: BP 129/86
--- NOTE | 2020-05-21 04:15 | NUR ---
ER DISCHARGE NOTE: Patient is cleared to be discharged per ERMD, pt is aox4, on room air, with stable vital signs. pt was given dc and prescription instructions, pt was able to verbalize understanding, pt id band removed. pt is able to ambulate with steady gait. pt took all belongings.
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
--- NOTE | 2020-05-21 08:54 | Diagnostic Imaging Report ---
Indication: Left foot pain Technique: 3 views left foot Comparison: 06/04/2019 Findings: There is an acuity indeterminate fracture deformity of the second metatarsal head. A cortical breaks of the medial and lateral aspects but apparent sclerosis of the fracture line This is a new finding, however. There is some flattening of the articular surface. No other acute fractures. No dislocations. Joint spaces are preserved. Impression: Fracture of the second metatarsal head, acuity indeterminate but new since previous study of 06/04/2019. Dr. Chance in the emergency room notified at the time of interpretation
== END 2020-05-21 04:15 | disposition home or self-care (01) ==
LOC: EMR 03:28
DX: M25.572 Pain in left ankle and joints of left foot (principal); S92.322A Displaced fracture of second metatarsal bone, left foot, initial encounter for closed fracture; X58.XXXA Exposure to other specified factors, initial encounter; Z88.6 Allergy status to analgesic agent
CPT/HCPCS: 73630; Z7502; 99283

== ENCOUNTER 2020-07-05 23:32 | Emergency (ER) | payer MEDICAID ==
[~2020-07-05] VITALS: Ht 175.3 cm; Wt 77.1 kg
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
[2020-07-05] MEDS ORDERED: Lidocaine 1% Plain 30 ml INJ ONE (23:45)
[2020-07-05] MEDS ORDERED: CEPHALEXIN500 MG ORAL (23:56)
[2020-07-06] MEDS ORDERED: Neosporin Oint Ud Pkt TOPIC ONE
[2020-07-06 00:15] VITALS: BP 135/79
[2020-07-06 00:20] VITALS: BP 135/79
== END 2020-07-06 00:20 | disposition home or self-care (01) ==
LOC: EDBD 23:32 → EMR 23:59
DX: S61.511A Laceration without foreign body of right wrist, initial encounter (principal); S51.811A Laceration without foreign body of right forearm, initial encounter; W25.XXXA Contact with sharp glass, initial encounter; Y92.9 Unspecified place or not applicable; Z88.6 Allergy status to analgesic agent
CPT/HCPCS: 12002; J2001; Z7502; 99283

== ENCOUNTER 2020-07-12 20:15 | Emergency (ER) | payer MEDICAID ==
[~2020-07-12] VITALS: Ht 175.3 cm; Wt 56.7 kg
[~2020-07-12 20:15] MED LIST changes: +CEPHALEXIN500 MG ORAL
[2020-07-12 20:22] VITALS: BP 129/84
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
--- NOTE | 2020-07-12 20:28 | NUR ---
ED Nurse Note: ERMD at bedside
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
--- NOTE | 2020-07-12 20:32 | NUR ---
ED Nurse Note: EKG performed, blood work obtained and sent to lab
[2020-07-12 20:48] LABS: BASOPHILS % (AUTO) 1.3 % (0.0-2.0); EOSINOPHILS % (AUTO) 2.8 % (0.0-3.0); HEMATOCRIT 44.1 % (42.0-52.0); HEMOGLOBIN 14.3 G/DL (14.2-18.0); MEAN CORPUSCULAR VOLUME 90 FL (80-99); MONOCYTES % (AUTO) 7.9 % (1.0-10.0); NEUTROPHILS % (AUTO) 59.9 % (45.0-75.0); PLATELET COUNT 316 K/UL (150-450); RED BLOOD COUNT 4.92 M/UL (4.70-6.10); RED CELL DISTRIBUTION WIDTH 13.1 % (11.6-14.8); WHITE BLOOD COUNT 9.5 K/UL (4.8-10.8)
--- NOTE | 2020-07-12 21:00 | NUR ---
ED Nurse Note: UA sent to lab
[2020-07-12 21:03] LABS: ANION GAP 6 mmol/L (5-15); BLOOD UREA NITROGEN 13 mg/dL (7-18); CALCIUM 9.2 MG/DL (8.5-10.1); CARBON DIOXIDE 29 MMOL/L (21-32); CHLORIDE 104 MMOL/L (98-107); CREATININE 0.8 MG/DL (0.55-1.30); POTASSIUM 3.9 MMOL/L (3.5-5.1); SODIUM 139 MMOL/L (136-145)
[2020-07-12 21:08] LABS: ALANINE AMINOTRANSFERASE 21 U/L (12-78); ALBUMIN/GLOBULIN RATIO 1.3 (1.0-2.7); ALKALINE PHOSPHATASE 64 U/L (46-116); ASPARTATE AMINO TRANSFERASE 24 U/L (15-37); BILIRUBIN,TOTAL 0.4 MG/DL (0.2-1.0)
[2020-07-12] MEDS ORDERED: ZOFRAN4 M3 ORAL (21:52)
[2020-07-12 21:58] VITALS: BP 121/82
--- NOTE | 2020-07-12 21:58 | NUR ---
ER DISCHARGE NOTE: Patient is cleared to be discharged home per ERMD, pt is aox4, 99% on room air, with stable vital signs. pt was given dc and prescription instructions, pt was able to verbalize understanding, pt id band removed. pt is able to ambulate with steady gait. pt took all belongings.
== END 2020-07-12 21:58 | disposition home or self-care (01) ==
LOC: EMR 20:30
DX: R53.1 Weakness (principal); Z88.6 Allergy status to analgesic agent
CPT/HCPCS: 36415; 80053; 80307; 85025; 93005; Z7502; 99284